=== PATIENT | female | born 1980 | race Caucasian/White ===

== ENCOUNTER 2023-05-31 12:46 | Outpatient (CLI) | payer BC, SELFPAY ==
--- NOTE | 2023-05-31 13:00 | US_ITS ---
Final Report Patient: MARIANNE LARA Facility:?[facility] Patient ID:?[id number] Site Patient ID:?[id number]. Site :?1980 Study:?US OB Pelvis -05/31/2023 1:53:21 PM Ordering Physician:?Erika Madera Final Report: INDICATION: First trimester scan, establish dates. COMPARISON: None. TECHNIQUE: Real-time miller-scale imaging of the pelvis was performed. FINDINGS: Sonographic imaging demonstrates a single living intrauterine gestation. The embryo demonstrates a regular cardiac rate measuring 173 beats per minute. The embryo`s crown-rump length measurement of 2.6 cm corresponds to a gestational age of 9 weeks 3 days with a sonographic due date of 12/31/2023. There is a normal-appearing yolk sac. There are no gross abnormalities noted within the embryo at this early state of development. The gestational sac has a normal appearance. There is a 3.3 x 5.1 x 2.4 cm perigestational hemorrhage. The amount of fluid within the sac appears appropriate for gestational age. The cervix is closed. The myometrium appears normal. Corpus luteal cyst left ovary. Right ovary not visualized. There are no suspicious fluid collections noted in the cul-de-sac. IMPRESSION: Single living intrauterine with sonographic gestational age 9 weeks 3 days and a sonographic due date 12/31/2023. Subchorionic hemorrhage measuring 3.3 x 5.1 x 2.4 cm. Dictated by Bishop Jacobson MD @ 05/31/2023 2:27:52 PM (Electronic Signatu
== END 2023-05-31 12:47 | disposition home or self-care (01) ==
LOC: US 12:47
PROVIDERS: Visit Provider Registered Nurse
DX: Z34.91 Encounter for supervision of normal pregnancy, unspecified, first trimester (principal); O20.9 Hemorrhage in early pregnancy, unspecified; Z3A.09 9 weeks gestation of pregnancy
CPT/HCPCS: 76817; 82565; 84450; 84460; 84520; 84550; 86703; 86706; 86803; 86850; 86900; 86901; 87086; 87340

== ENCOUNTER 2023-05-31 14:26 | Outpatient (CLI) | payer BC, SELFPAY | END 2023-05-31 14:27 | disposition home or self-care (01) | PROVIDERS: Visit Provider Registered Nurse | DX: Z34.91 Encounter for supervision of normal pregnancy, unspecified, first trimester (principal) | CPT/HCPCS: 82565; 84450; 84460; 84520; 84550; 86592; 86703; 86704; 86706; 86762; 86787; 86803; 86850; 86900; 86901; 87086; 87340 ==

== ENCOUNTER 2023-06-17 13:52 | Outpatient (CLI) | payer BC, SELFPAY ==
--- NOTE | 2023-06-17 14:00 | US_ITS ---
Final Report Patient: MARIANNE LARA Facility:?[facility] Patient ID:?[id number] Site Patient ID:?[id number]. Site :?1980 Study:?US OB Pelvis TRANSVAGINAL-06/17/2023 2:46:00 PM Ordering Physician:TAMICA BARNETT Final Report: INDICATION: Hemorrhage in early TECHNIQUE: Ultrasound OB pelvis transvaginal. Real-time miller-scale imaging of the pelvis was performed. COMPARISON: Obstetric ultrasound 05/31/2023 FINDINGS: Clinical Age: 11 weeks 6 days (RAMYA 12/31/2023) Sonographic imaging demonstrates a single living intrauterine gestation. The embryo demonstrates a regular cardiac rate measuring 173 beats per minute. The embryo`s crown rump length measurement of 5.0 cm corresponds to a gestational age of 11 weeks 5 days. Perigestational hemorrhage has increased in size now measuring 9.3 x 7.0 x 7.2 centimeters. IMPRESSION: 1. Single live intrauterine gestation with a clinical age of 11 weeks 6 days. 2. Perigestational hemorrhage redemonstrated which has significantly increased in size now measuring 9.3 x 7.0 x 7.2 centimeters. Considering the increasing hemorrhage, follow up ultrasound suggested in 1 week to reassess viability. Dictated by Davian Monteiro MD @ 06/17/2023 3:16:46 PM ----- ADDENDUM ----- Report confirmed with Dr. Barnett at 15:23 on 06/17/2023. Dictated by Davian Monteiro MD @ Jun 17 2023 3:33PM (Electronic Signature)
== END 2023-06-17 13:53 | disposition home or self-care (01) ==
LOC: US 13:52
PROVIDERS: Visit Provider Obstetrics & Gynecology
DX: O20.9 Hemorrhage in early pregnancy, unspecified (principal); Z3A.11 11 weeks gestation of pregnancy
CPT/HCPCS: 76817

== ENCOUNTER 2023-07-01 10:49 | Outpatient (CLI) | payer BC, SELFPAY ==
--- NOTE | 2023-07-01 11:00 | US_ITS ---
Patient: MARIANNE LARA Facility:?[facility] Patient ID:?[id number] Site Patient ID:?[id number] Site :?1980 Study:?US-OB Pelvis OB F/U [facility]-07/01/2023 11:30:53 AM Ordering Physician:?CLARK NAVA CNM Final Report: INDICATION: Follow-up subchorionic hemorrhage COMPARISON: 06/17/2023 TECHNIQUE: Real-time miller-scale imaging of the pelvis was performed. FINDINGS: Sonographic imaging demonstrates a single living intrauterine gestation. The embryo demonstrates a regular cardiac rate measuring 147 beats per minute. The embryo`s crown-rump length measurement of 7.9 cm corresponds to a gestational age of 13 weeks 6 days with a sonographic due date of 12/31/2023. Subchorionic hemorrhage is present in the fundal region measuring 4.3 x 2.0 x 5.6 cm, previously measuring 9.3 x 7.0 x 7.2 cm. IMPRESSION: Decreased size of fundal subchorionic hemorrhage measuring 4.3 x 2.0 x 5.6 cm. Dictated by Bishop Jacobson MD @ 07/01/2023 11:35:12 AM Signed by:?Bishop Jacobson MD @07/01/2023 11:35:12 AM (Electronic Signature)
== END 2023-07-01 10:50 | disposition home or self-care (01) ==
LOC: US 10:49
PROVIDERS: Visit Provider Advanced Practice Midwife
DX: O20.9 Hemorrhage in early pregnancy, unspecified (principal); Z3A.13 13 weeks gestation of pregnancy
CPT/HCPCS: 76816

== ENCOUNTER 2023-08-22 16:14 | Outpatient (CLI) | payer BC, SELFPAY | END 2023-08-22 16:15 | disposition home or self-care (01) | LOC: FRMREF 16:15 | PROVIDERS: Visit Provider Registered Nurse | DX: O09.522 Supervision of elderly multigravida, second trimester (principal); Z3A.21 21 weeks gestation of pregnancy | CPT/HCPCS: 84443 ==

== ENCOUNTER 2023-09-28 03:11 | Outpatient (CLI) | payer BC, SELFPAY ==
[2023-09-28] VITALS (11 sets, daily range): BP systolic 122–126; BP diastolic 59–82; PULSE 90–111; RESP 16; TEMP 36.6–36.8; O2SAT 96–99
[2023-09-28 04:22] LABS: Amnisure Rom* POSITIVE
[2023-09-28] MEDS: AMPICILLIN 2 GM in 0.9 % SODIUM CHLORIDE Mini-bag 100 ML IVPB (05:16)
[2023-09-28] MEDS: BETAMETHASONE SOD PHOS/ACETATE 6 MG/ML ML 12 MG IM (05:21)
[2023-09-28] MEDS: LACTATED RINGERS 1000 ML 1,000 ML 75 ML IV (05:23)
--- NOTE | 2023-09-28 05:35 | P.OBHP_ITS ---
OB - H&P; HPI Antepartum History of Present Illness Time Seen by Provider: 05:36 Date Seen: 09/28/23 Chief complaint: Maternity Narrative: Mariana Tello is a 42 year old 6 para 4014 at 26w4d gestation with an RAMYA of 12/31/2023 who presented to the Center early this morning with 3 episodes of fluid leaking from the vaginal canal enough that it saturated her underwear and got on to her clothing. On arrival to the center her AmniSure test was positive. She received 1 dose of betamethasone. Magnesium for neuro protection was started with a 4 g IV load and 2 grams/hour she was also given ampicillin 2 g IV and 1000 mg azithromycin IV to increase latency in a patient with PPROM. Planning on transferring the patient to [facility] for care and NICU. She is expecting a girl. 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 * Pelvic rest and avoidance of straining/strenuous activity * Recommend serial surveillance * Repeat US in 4 weeks w/ MFM to reevaluate growth, anatomy, and placenta/uteroplacental interface on 09/20/23. * Delivery at [facility] with Medical Physics Teacher Onc present at 34-35 weeks if accreta still suspected, or delivery at 36-37 weeks if previa without accreta. # History of delivery x4 * from 06/23/19: Dense adhesions between fascia, rectus muscles, omentum, anterior peritoneum, lower uterine segment, bladder. * Planning repeat with bilateral salpingectomies # BMI 49.1. * Hemoglobin A1c: 5.3% * Recommend daily baby aspirin starting at 12 weeks due to BMI and advanced maternal age to reduce risk of preeclampsia * Nutrition consult placed * Anesthesia consult. Would like to discuss medication options, as she did not like certain medications that she has received in the past during delivery. [] * Level 2 ultrasound: see below * Early GDM testing 08/21/2022: 114 * Weekly BPP and/or NST starting at 32 weeks * Growth ultrasound between 32 and 36 weeks # Advanced maternal age * Genetic screening discussed 06/30. Ordered. Negative for trisomy 21, 13, and 18. * Level 2 ultrasound: No anomalies; growth normal; CECIL normal; small YARELIS; placenta previa and suspected focal placenta accreta spectrum * Growth ultrasound between 32-36 weeks * Weekly NST starting at 36 weeks * Delivery 39-40 weeks # History of macrosomia. Previous deliveries were 8 lb 14 oz, 9 lb, 8 lb 13 oz, 8 lb 1 oz * Growth ultrasound # History of cholestasis in 2 of her previous pregnancies # Multiparity # Subchorionic hemorrhage measuring 3.3 x 5.1 x 2.4 cm. * increased in size 9.3x7x7.2cm at 11.6 wks, with some bleeding * f/u US 13.6 wks: now 4.3 X 2 X 5.6 cm; no further f/u until 20 weeks * YARELIS present at 20 week anatomy scan 50.3 x 7.9 x 37.4mm # Tachycardia at 21 weeks. EKG normal.Hemoglobin normal at 12.1. TSH normal at 2.29. *Patient asks for different surgical pad underneath her during the time of the delivery. States that she has had hives from the surgical pad in the past. Flu: Recommended, declines Covid: Recommended, declines Labs Blood type: O (+) positive Rubella: immune RPR/VDLR: nonreactive GBS status: unknown HBsAG: negative Meds Home Medications and Allergies Home Medications ?Medication ?Instructions ?Recorded ?Confirmed ?Type ascorbic acid (vitamin C) 1,000 mg 500 mg PO QDAY 05/31/23 09/28/23 History tablet cholecalciferol (vitamin D3) 50 50 mcg PO QDAY 05/31/23 09/28/23 History mcg (2,000 unit) capsule docosahexaenoic acid 200 mg 200 mg PO DAILY 05/31/23 09/28/23 History capsule ( DHA) vitamin B complex 1 cap PO QDAY 05/31/23 09/28/23 History calcium carbonate (Tums) 200 mg PO BID 09/16/23 09/28/23 History Allergies Allergy/AdvReac Type Severity Reaction Status Date / Time house dust Allergy Unknown Verified 09/16/23 12:53 adhesive AdvReac Unknown Verified 09/16/23 12:53 OB - H&P: Exam Physical Exam: Vital signs: Temp Pulse Resp BP Pulse Ox 98.3 F 90 16 126/69 98 09/28/23 04:28 09/28/23 04:09 09/28/23 04:28 09/28/23 04:09 09/28/23 03:49 Narrative: GENERAL APPEARANCE: Pleasant, , well-groomed woman in no acute distress. VITAL SIGNS: as noted in nursing notes HEAD: Normocephalic, atraumatic. THYROID: no masses, nodularity, tenderness or enlargement. LUNGS: Clear to auscultation bilaterally without wheezes, rales or rhonchi. HEART: Regular rate and rhythm with normal S1 and S2. No gallop, rub or murmur. ABDOMEN: Gravid. Soft, nontender, nondistended, with normal bowels sounds throughout. EFM: 140s with 10 x 10 accelerations, no decelerations. Reassuring for gestational age. TOCO: No contractions EXTREMITIES: No cyanosis, clubbing, or varicosities. Edema: 1+ at bilateral lower ankles. NEUROLOGIC: Normal gait and balance. Normal deep tendon reflexes at bilateral patella 2+/2, equal without clonus. PSYCHIATRIC: alert and oriented x3. Normal speech pattern, eye contact and affect. SKIN: Warm, dry, and well perfused. Good turgor. No lesions, nodules or rashes. OB - A/P Antepartum Assessment and Plan (1) premature rupture of membranes (PPROM) with unknown onset of labor: Status: Acute Plan 1. Transfer of care to [facility]: Dr. Justen White 2. Received BMTZ #1 3. Magnesium 4gm load and 2gm/hour for neuroprotection. 4. Ampicillin 2gm IV now. 5. Azithromycin 1000mg IV now.
[2023-09-28] MEDS: AZITHROMYCIN 250 MG TABLET 1000 MG PO (05:43)
[2023-09-28] MEDS: MAGNESIUM Infusion 40 GM/1,000 ML IV.SOLN IVPB (05:55)
--- NOTE | 2023-09-28 08:24 | PC.OBNST ---
NST Note NST Note Start: 09/28/23 03:35 Freq: ONCE Status: Active Protocol: Document 09/28/23 08:22 YONY (Rec: 09/28/23 08:23 YONY [id number]) NST Note 6 Para (# of births) 4 EDC 12/31/23 Gestational Age In Weeks & Days 26 Weeks & 4 Days Patient Presented with Complaint(s) of Leaking fluid Appropriate for Gestational Age Yes FRANNIE Carson, RN Date 09/28/23 Appropriate for Gestational Age Yes FRANNIE Trimble RNC Date 09/28/23 OB NST charge Yes Complete NST Note via Write Note Yes The provider's electronic signature indicates the NST is reactive/appropriate for gestational age. *Note to provider: If an addendum is required, open the patient's chart and click on the note under the Nurse/Allied Health tab.
--- NOTE | 2023-10-03 16:18 | PC.OBNST ---
NST Note NST Note Start: 09/28/23 03:35 Freq: ONCE Status: Discharge Protocol: Document 09/28/23 08:22 YONY (Rec: 09/28/23 08:23 YONY [id number]) NST Note 6 Para (# of births) 4 EDC 12/31/23 Gestational Age In Weeks & Days 26 Weeks & 4 Days Patient Presented with Complaint(s) of Leaking fluid Appropriate for Gestational Age Yes FRANNIE Carson, RN Date 09/28/23 Appropriate for Gestational Age Yes FRANNIE Trimble RNC Date 09/28/23 OB NST charge Yes Complete NST Note via Write Note Yes The provider's electronic signature indicates the NST is reactive/appropriate for gestational age. *Note to provider: If an addendum is required, open the patient's chart and click on the note under the Nurse/Allied Health tab.
--- NOTE | 2023-11-01 07:46 | PC.OBNST ---
NST Note NST Note Start: 09/28/23 03:35 Freq: ONCE Status: Discharge Protocol: Document 09/28/23 08:22 YONY (Rec: 11/01/23 07:46 SULEMA [id number]) NST Note 6 Para (# of births) 4 EDC 12/31/23 Gestational Age In Weeks & Days 26 Weeks & 4 Days Patient Presented with Complaint(s) of Leaking fluid Appropriate for Gestational Age Yes FRANNIE Carson RN Date 09/28/23 Appropriate for Gestational Age Yes FRANNIE Trimble RN Date 09/28/23 OB NST charge Yes Complete NST Note via Write Note Yes The provider's electronic signature indicates the NST is reactive/appropriate for gestational age. *Note to provider: If an addendum is required, open the patient's chart and click on the note under the Nurse/Allied Health tab.
== END 2023-09-28 08:15 | disposition other institution (70) ==
LOC: OB OUT 03:12 → OB 03:12
PROVIDERS: Visit Provider Obstetrics & Gynecology
DX: O42.912 Preterm premature rupture of membranes, unspecified as to length of time between rupture and onset of labor, second trimester (principal); Z3A.26 26 weeks gestation of pregnancy
CPT/HCPCS: 59025; 84112; G0463; A9270; J0290; J0702; J3475; J7120

== ENCOUNTER 2023-09-28 08:02 | Outpatient (CLI) | payer BC, SELFPAY ==
--- NOTE | 2023-09-30 05:13 | PC.OBNST ---
Mariana Tello Female : 1980 MedRec# [id number] 09/28/23 08:24 - NST Documentation by Heather Carson RN Acct Num: [id number] : 1980 Patient Age: 42 NST Note NST Note Start: 09/28/23 03:35 Freq: ONCE Status: Active Protocol: Document 09/28/23 08:22 YONY (Rec: 09/28/23 08:23 YONY [id number]) NST Note 6 Para (# of births) 4 EDC 12/31/23 Gestational Age In Weeks & Days 26 Weeks & 4 Days Patient Presented with Complaint(s) of Leaking fluid Appropriate for Gestational Age Yes FRANNIE Carson RN Date 09/28/23 Appropriate for Gestational Age Yes FRANNIE Trimble RNC Date 09/28/23 OB NST charge Yes Complete NST Note via Write Note Yes The provider's electronic signature indicates the NST is reactive/appropriate for gestational age. *Note to provider: If an addendum is required, open the patient's chart and click on the note under the Nurse/Allied Health tab. Initialized on 09/28/23 08:24 - END OF NOTE
== END 2023-09-28 08:03 | disposition home or self-care (01) ==
LOC: AMB 09-29 17:15
PROVIDERS: Visit Provider Family Medicine
DX: O42.912 Preterm premature rupture of membranes, unspecified as to length of time between rupture and onset of labor, second trimester (principal); Z3A.26 26 weeks gestation of pregnancy
CPT/HCPCS: A0425; A0434

== ENCOUNTER 2024-12-14 01:10 | Day surgery (SDC) | payer BC, SELFPAY ==
[2024-12-14] VITALS (23 sets, daily range): BP systolic 120–151; BP diastolic 69–100; PULSE 67–96; RESP 14–19; TEMP 35.9–37.2; O2SAT 93–100; BMI 50.3
--- OUTSIDE RECORDS SUMMARY | 2024-12-14 01:12 | XMS_ITS | Encounter Summary ---
Author Organization [facility] Address [address] [facility] [facility] [place] [address] Care Team Providers Care Therapist Speech Name Role Phone Henrietta, Kylie Tianna Unavailable Kylie Shrestha Unavailable Pooja Harris MD Primary Care Provider Bishop Powell MD Unavailable [phone] Encounter Details Date Type Department Care Team (Late st Contact Info) Description 10[place]22/2023 [facility] [place] [facility] [address] [facility] [address] [place] [address] Verito Deleon, RN Social History Tobacco Use Types Packs/Day Years Used Date Smoking Tobacco: Never Smokeless Tobacco: Never Alcohol Use Standard Drinks/Week Comments No 0 (1 standard drink = 0.6 oz pur e alcohol) 2 per month [place] Depression Scale Answer Date Recorded Last EPDS Total Score Not on file 10/11/2023 The thought of harming myself has occurred to me . 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
--- OUTSIDE RECORDS SUMMARY | 2024-12-14 01:12 | XMS_ITS | Clinical Summary ---
Author Organization [employer] [facility] Address [address] [place] [address] Care Team Providers Care Financial Retirement Plan Specialist Name Role Phone Grayson Parisi MD Unavailable [facility] Primary Care Provider Unavailabl e Allergies Active Allergy Reactions Criticality Noted Date Comments Adhesive Rash,Itching High 06/23/2015 Dust Mites Hives 11/01/2017 Medications vitamin-folic acid 1 mg ( VITAMIN) tablet/capsule Take 1 tablet by mouth once daily. 0 4 Active ascorbic acid, vitamin C, (VITAMIN C) 1,000 mg tablet 1 tablet daily Active cholecalciferol (VITAMIN D3) 5,000 unit capsule Take 1 capsule by mouth once daily. 40 units = 1 mcg (5000 units = 125 mcg) 0 0 Active CPAPIndications :BROWN (obstructive sleep apnea) CPAP machine for home use at pressure 9 cm/H2O, full face mask x1/3month with a full face cushion x1/mo length of need #99 1 Device 11 1 Active hydrocortisone (HYTONE) 2.5 % ointmentIndicat ions:Dermatitis Apply topically to affected area(s) two times daily. 20 g 3 Active Active Problems Problem Noted Date Diagnosed Date BROWN 03/18/2020 HST AHI-14.9 03/30/2020 Class 3 severe obesity due to excess calories in adult 03/30/2020 S/P section 06/22/2015 Knee pain 01/10/2014 Overview (01/10/2014): 11/2013: [facility] Dr. Samuel: PT. Leg edema 12/21/2013 Overview (12/30/2013): Chronic; worse recently with weight gain, summer heat. Cr, TSH, urinalysis unrevealing 12/2013. 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 06/2012: doing well, MRI without recurrence. Re-scan planned through Neurosurgery 02/2013; delayed due to ; normal 11/2013. Next scan 11/2014. Migraine 12/31/2011 Overview (03/03/2012): Neurology ([facility], Dr. Brumfield 12/2011): OTCs, MRI with brain tumor (unlikely related). WBC decreased 10/14/2011 Overview (12/30/2013): Most recent 12/2013: normal. 02/2012: 4.1. Smear without concerning findings. Stable 10/2012. Vitamin D deficiency 10/14/2011 Overview (10/24/2012): 09/2011: 12.3. Planning 50,000 units Qweek x8 weeks, followed by 1,000 units daily. 12/2011: 19.6. Planning repeat above treatment if okay with Neurology. 02/2012: 24.6. 1,000 units daily. 10/2012: not taking Vitamin D. Level 14. 50,000 units weekly for 12 weeks, then 1,000 units daily. Health Maintenance 05/10/2011 Overview (12/30/2014): Establish Care: 04/2011. 11/2014: 10 weeks ; [facility] ED for CP, SOB, borderline elevated d-dimer; ultrasound lower extremities negative. Physical Exam: 12/2014, 12/2013, 10/2012, 09/2011. FLP, TSH, Hgb normal (12/2013). FBS normal through Gynecology 2013. Pap/Breast: per [facility] Usher (Dr. Kimball; colposcopy pending 11/2013). Follow-up pap smear 11/2011, 05/2012 normal, pending 11/2012 per patient. Mammogram: Future. Pre-menopausal: irregular periods, seeing Booth Usher 04/2011. Calcium: 12/2013: 2 servings/day; intermittent multivitamin. DEXA: Future. Exercise: 12/2013: Walking; PT for her knee. Colonoscopy: Future (MGF with colon cancer in his 60s). TTE normal 10/2011 (subtle extra heart sound heard around S1 on physical exam). 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 Derm (Dr. Mariia Swartz): atypical nevus removed chest wall. Immunizations Immunization Administration Dates Next Due AMB Influenza, IIV4 PF (=>6 mos Flulaval,Fluzone Fluarix)(Flu Clinic Only) 01/29/2014 Tdap 10/11/2011 Family History Medical History Relation Name Comments Obesity Brother 1 Other Brother 2 Leukemia (T-Silvia l) diagnose at 7 Other cancer Brother 2 Meningioma Diabetes type II Father Hypertension Father Other Father Gout/Hereditary peripheral neuropathy Cancer-colon Maternal Grandfather Lymphoma Maternal Grandfather Cancer Maternal Grandmother Skin ca ncer (not melanoma) Diabetes Maternal Uncle Other Paternal Grandfather amblyop ia Alzheimer's disease Paternal Grandmother Relation Name Status Comments Brother 1 Alive Brother 2 Alive Father Alive Maternal Grandfather Maternal Grandmother Alive Maternal Uncle Mother Alive Paternal Grandfather Alive Paternal Grandmother Alive Social History Tobacco Use Types Packs/Day Years Used Date Smoking Tobacco: Never Smokeless Tobacco: Never Tobacco Cessation:Counseling Given: Yes Alcohol Use Standard Drinks/Week Comments No 0 (1 standard drink = 0.6 oz pur e alcohol) Occasional, not when PHQ-2 Answer Date Recorded PHQ-2 TOTAL SCORE 0 01/15/2020 Social Connections Answer Date Recorded Frequency of Communication with Friends and Fami ly Not on file 04/30/2023 Financial Resource Strain Answer Date R ecorded Difficulty of Paying Living Expenses 3 04/20/2022 Difficulty of Paying Living Expenses Not on file 04/20/2022 Food Insecurity Answer Date Recorded Worried About Running Out of Food in the Last Ye ar 1 04/20/2022 Transportation Needs Answer Date Record ed Lack of Transportation (Medical) 1 04/20/2022 Housing Stability Answer Date Recorded Unable to Pay for Housing in the Last Year 1 04/20/2022 Comments No Sex and Gender Information Value Date Recorded Sex Assigned at Not on file Legal Sex Female 8:23 AM SUPERVISOR BOAT OUTFITTING Gender Identity Not on file Sexual Orientation Not on file Obstetrics History Para Term AB IAB SAB Ectopic Multiple Livin g Live Births 4 2 2 0 1 0 0 0 0 3 2 Date Outcome GA Total Labor Labor/2nd/3rd Weight Sex Type Anes PTL Olga A1 A5 Name Clin AB 2013 Term 41w 0d 4.03 kg (8 lb 14 oz) M C-Sec tion Epidur al N Livin g [place] [facility] Complications: Intolera nce 2015 Term 41w 0d 4.09 kg (9 lb 0.3 oz) M [facility] t[facility] Spinal Livin g 9 9 [facility] Delivery Location:[facility] 2017 4 kg (8 lb 13 oz) F C-Sec tion Complications:None Comments:had cholestas is of Last Filed Vital Signs Vital Sign Reading Time Taken Comments Blood Pressure 118/68 04/20/2022 2:55 PM SUPERVISOR BOAT OUTFITTING Pulse 68 04/20/2022 2:55 PM SUPERVISOR BOAT OUTFITTING Temperature 36.4 C (97.5 F) 06/06/2020 4:34 PM SUPERVISOR BOAT OUTFITTING Respiratory Rate 16 06/06/2020 4:34 PM SUPERVISOR BOAT OUTFITTING Oxygen Saturation 98% 06/06/2020 4:34 PM SUPERVISOR BOAT OUTFITTING Inhaled Oxygen Concentration - - Weight 161.7 kg (356 lb 8 oz) 04/20/2022 2:55 PM SUPERVISOR BOAT OUTFITTING Height 185.4 cm (6' 1) 06/06/2020 4:35 PM SUPERVISOR BOAT OUTFITTING Body Mass Index 47.03 06/06/2020 4:35 PM SUPERVISOR BOAT OUTFITTING Plan of Treatment Health Maintenance Due Date Last Done Comments HIV for age 15-65 12/14/1995 Hepatitis C screening for age 18-79 1998 Hepatitis B series for 19+ (1 of 3 - 19+ 3-dose series) 12/14/1999 BMI (ht and wt on same day) for age 18+ 01/14/2021 01/15/2020, 11/01/2017, 05/16/2015 Depression screening for age 12+ 01/14/2021 01/15/2020, 01/15/2020, 11/01/2017 Tetanus booster 10/10/2021 10/11/2011 COVID-19 vaccine series ( season) 2023 Influenza Vaccine (#1) 2024 01/29/2014 Pap test for age 21-65 05/31/2026 , 05/31/2023, 02/15/2017, Additional history exists Pneumococcal series for age 6-49 Aged Out No longer eligible based on patient's age to complete this topic Procedures Procedure Name Priority Date/Time Associated Diagnosis Comments RURAL SOCIOLOGIST THIN PREP PAP SCREEN IMAGED Routine 05/31/2023 3:10 PM SUPERVISOR BOAT OUTFITTING from Last 3 Months or Most Recently Relevant to Health Maintenance Results * RURAL SOCIOLOGIST THIN PREP PAP SCREEN IMAGED (05/31/2023 3:10 PM SUPERVISOR BOAT OUTFITTING) Case Report Gynecologic Cytology Report Case: [id number] Authorizing Provider: Claire Madera NP Collected: 05/31/2023 1510 Ordering Location: [facility] Received: 06/03/2023 1729 First Screen: Zandra Zamudio Specimen: RURAL SOCIOLOGIST ThinPrep Vial Screening, Cervical 06/05/2023 6:22 PM SUPERVISOR BOAT OUTFITTING [facility] INTERPRETATION/ RESULT NEGATIVE FOR INTRAEPITHELIAL LESION OR MALIGNANCY (NIL) (none) 06/05/2023 6:22 PM SUPERVISOR BOAT OUTFITTING [facility] at 1822 SUPERVISOR BOAT OUTFITTING SPECIMEN ADEQUACY Satisfactory for evaluation No endocervical component seen in a patient 06/05/2023 6:22 PM SUPERVISOR BOAT OUTFITTING [facility] HPV REQUEST HPV and PAP 06/05/2023 6:22 PM SUPERVISOR BOAT OUTFITTING [facility] Date of LMP 03/18/2023 06/05/2023 6:22 PM SUPERVISOR BOAT OUTFITTING [facility] Last Pap Date 02/15/2017 06/05/2023 6:22 PM SUPERVISOR BOAT OUTFITTING [facility] Last Pap Result NIL 6:22 PM SUPERVISOR BOAT OUTFITTING [facility] Abnormal Pap or Bonner Bx in last 5 years No 06/05/2023 6:22 PM SUPERVISOR BOAT OUTFITTING [facility] Menstrual Status 06/05/2023 6:22 PM SUPERVISOR BOAT OUTFITTING [facility] Bonner Bx Done Today No 06/05/2023 6:22 PM SUPERVISOR BOAT OUTFITTING [facility] Additional Information 06/05/2023 6:22 PM SUPERVISOR BOAT OUTFITTING [facility] Comment: Interpreted at [facility] - [address] [facility] [address], [place] [address] Automated Review Successful 06/05/2023 6:22 PM SUPERVISOR BOAT OUTFITTING [facility] Comment:Specimen processed s uccessfully by automated casting room helper device, ThinPrep Imaging System, [employer] ANCILLARY TESTING RURAL SOCIOLOGIST HPV Ordered, Please see separate report 06/05/2023 6:22 PM SUPERVISOR BOAT OUTFITTING [facility] Note The pap test is a screening technique, not a diagnostic procedure. It is used primarily to screen for squamous cancers and precursor lesions. Published studies have shown that it is subject to both false negative and false positive results. The pap test should not be used as the sole means to diagnose or exclude pre-malignant and malignant lesions. 06/05/2023 6:22 PM SUPERVISOR BOAT OUTFITTING [facility] Other (Cervical) 05/31/2023 3:10 PM SUPERVISOR BOAT OUTFITTING 06/03/2023 5:29 PM SUPERVISOR BOAT OUTFITTING us Claire Madera NP PATHOLOGY/CYTOLOGY Final Result [facility] [address] [place] [address], [place] from Last 3 Months or Most Recently Relevant to Health Maintenance Insurance [facility] Advance Directives * Full Code (Latest Code Status on File) Date Activated Date Inactivated Comments 06/21/2015 3:13 PM 06/24/2015 3:46 PM * Full Code Date Activated Date Inactivated Comments 06/21/2015 10:00 AM 06/21/2015 3:13 PM Care Teams Financial Retirement Plan Specialist Relationship Specialty Start Date End Date Josefina [facility] PCP - General 04/20/22 Grayson Parisi MD [address] [address] Obstetrics and Gynecology 12/30/14
--- OUTSIDE RECORDS SUMMARY | 2024-12-14 01:12 | XMS_ITS | Encounter Summary ---
Author Organization [facility] Address [address] [place] [address] Care Team Providers Care Team Coordinator Name Role Phone Kylie Shrestha Unavailable Kylie Shrestha Primary Care Provider [phone] Kylie Shrestha Unavailable Pooja Harris MD Primary Care Provider Yasmin Aviles APRN PATIENT CASE MANAGER Unavailable Yasmin Aviles APRN PATIENT CASE MANAGER Unavailable Lon Rose MD Unavailable [phone] Bishop Powell MD Unavailable [phone] Reason for Referral * - Closed Specialty Diagnoses / Procedures Referred By Siva t Referred To Contact Diagnoses related condition, antepartum Kimberlyn Hernandez, RELIEF WORKER [facility] [address] [place] [address] Phone: tel: fax: Referral ID Status Reason Start Date Expiration Date Visits Re quested Visits Authorized [id number] Closed 02/18/2017 02/18/2018 1 1 Comments AMA, obesity T CUTTER Encounter Details Date Type Department Care Team (Late st Contact Info) Description 02/18/2017 Orders Only [facility] [place] [address] [facility] [address] [place] [phone] Kimberlyn Hernandez NP [address] [address] related condition, antepartum (Primary Dx) Social History Tobacco Use Types Packs/Day Years Used Date Smoking Tobacco: Never Alcohol Use Standard Drinks/Week Comments No 0 (1 standard drink = 0.6 oz pur e alcohol) 2 per month Comments No Sex and Gender Information Value Date Recorded Sex Assigned at Not on file Legal Sex Female 5:04 AM INSET CUTTER Gender Identity Not on file Sexual Orientation Not on file documented as of this encounter Plan of Treatment Scheduled Referrals Name Type Priority Associated Diagnoses Orde r Schedule [facility] Genetic Counseling Referral Routine Related Condition, Antepartum 1 Occurrences starting 02/18/2017 until 02/19/2018 documented as of this encounter Results * [facility] US Comprehensive Single (04/12/2017 10:53 AM INSET CUTTER) Anatomical Region Laterality Modality Ultrasound 04/12/2017 10:1 2 AM INSET CUTTER Impressions 04/12/2017 11:42 AM INSET CUTTER IMPRESSION ----- 1) Intrauterine at 19+6 weeks gestational age. 2) None of the anomalies commonly detected by ultrasound were evident in the limited anatomic survey described above due to maternal habitus. Increased nuchal fold. 3) Growth parameters and estimated weight were consistent with an appropriate for gestation age pattern of growth. 4) The amniotic fluid volume appeared normal. 5) Partial circumvallate placenta. Narrative 04/12/2017 11:42 AM INSET CUTTER Comprehensive ----- Pat. Name: MARIANNE TELLO Study Date: 04/12/2017 10:12am Pat. NO: [id number] Referring MD: KIMBERLYN HERNANDEZ Site: [facility] [employer] Warehouse Helper: Kimberlyn Wilder RDMS : 1980 Age: 36 ----- INDICATION ----- Advanced Maternal Age--Multigravida. METHOD ----- Transabdominal ultrasound examination. ----- Haynes . Number of fetuses: 1. DATING ----- Date Details Gest. age RAMYA LMP 11/24/2016 19 w + 6 d 08/31/2017 U/S 04/12/2017 based upon AC, BPD, Femur, HC 20 w + 3 d 08/27/2017 Assigned dating Dating performed on 04/12/2017, based on the LMP 19 w + 6 d 08/31/2017 GENERAL EVALUATION ----- Cardiac activity: present. FHR 155 bpm. movements: visualized. Presentation: Variable. Placenta: Placental site: no previa, posterior. Partial circumvallate placenta. Umbilical cord: 3 vessel cord. Amniotic fluid: Amount of AF: normal amount. MVP 4.4 cm. CECIL 17.1 cm. Q1 4.4 cm, Q2 4.4 cm, Q3 4.3 cm, Q4 4.0 cm. BIOMETRY ----- Main Biometry: BPD 47.4 mm 20w 2d Hadlock OFD 64.8 mm 20w 4d Nicolaides HC 180.4 mm 20w 3d Hadlock AC 151.3 mm 20w 2d Hadlock Femur 34.1 mm 20w 5d Hadlock Cerebellum tr 21.4 mm 20w 3d Nicolaides CM 4.9 mm Nuchal fold 6.12 mm Humerus 35.9 mm 22w 4d Nikhil Weight Calculation: EFW 359 g EFW (lb,oz) 0 lb 13 oz Calculated by Felylock ([id number]) Head / Face / Neck Biometry: Tuber Machine Cutter 6.5 mm Nasal bone 7.2 mm Amniotic Fluid / FHR: AF MVP 4.4 cm CECIL 17.1 cm FHR 155 bpm ANATOMY ----- The following structures appear normal: Head / Neck Cranium. Head size. Head shape. Lateral ventricles. Choroid plexus. Midline falx. Cavum septi pellucidi. Cerebellum. Cisterna magna. Thalami. Neck. Nuchal fold. Face Lips. Profile. Nose. Orbits. Heart / Thorax 4-chamber view. RVOT. LVOT. Aortic arch. Bicaval view. Ductal arch. 5-nhptdu-hxjqkji view. Cardiac position. Cardiac size. Cardiac rhythm. Diaphragm. Abdomen Abdominal wall. Cord insertion. Stomach. Kidneys. Bladder. Liver. Bowel. Spine / Skelet. Cervical spine. Thoracic spine. Lumbar spine. Sacral spine. Extremities Arms. Legs. MATERNAL STRUCTURES ----- Cervix Visualized, Appears Closed. Cervical length 49.5 mm. Right Ovary Not visualized. Left Ovary Not visualized. RECOMMENDATION ----- We discussed the findings on today's ultrasound with the patient. The nuchal fold measurement on today's ultrasound was >6mm which gives an associated risk for Down syndrome of 18.6. This finding increases your patient's risk for Down syndrome in this to 1/15. We discussed the availability of NIPT screening versus amniocentesis for the precise diagnosis of chromosomal abnormalities including the associated procedure-related risk of loss of 1/500, which she declined. A repeat ultrasound has been scheduled in 3 weeks to reevaluate anatomy. Return to primary provider for continued care., Thank-you for the opportunity to participate in the care of this patient. If you have questions regarding today's evaluation or if we can be of further service, please contact the [facility]. anomalies may be present but not detected . Procedure Note Morena Cazares, DO - 12/29/2017 Comprehensive ----- Pat. Name:Renuka TELLO Date:04/12/2017 10:12am Pat. NO: [id number] MD:KIMBERLYN HERNANDEZ [facility]Kimber[facility] Wilder RDMS :1980Age:36 ----- INDICATION ----- Advanced Maternal Age--Multigravida. METHOD ----- Transabdominal ultrasound examination. ----- Haynes . Number of fetuses: 1. DATING ----- DateDetailsGest. age RAMYA LMP 11/24/201619 w + 6 d 08/31/2017 U/S 04/12/2017based upon AC, BPD, Femur, HC20 w + 3 d 08/27/2017 Assigned dating Dating performed on 04/12/2017, based onthe LMP 19 w +6 d 08/31/2017 GENERAL EVALUATION ----- Cardiac activity: present. FHR 155 bpm. movements: visualized. Presentation: Variable. Placenta: Placental site: no previa, posterior. Partial circumvallate placenta. Umbilical cord: 3 vessel cord. Amniotic fluid: Amount of AF: normal amount. MVP 4.4 cm. CECIL 17.1 cm. Q14.4 cm, Q2 4.4 cm, Q3 4.3 cm, Q4 4.0 cm. BIOMETRY ----- Main Biometry: BPD 47.4 mm20w 2d Hadlock OFD 64.8 mm20w 4d Nicolaides HC 180.4 mm20w 3d Hadlock AC 151.3 mm20w 2d Hadlock Femur 34.1 mm20w 5d Hadlock Cerebellum tr 21.4 mm20w 3d Nicolaides CM 4.9 mm Nuchal fold 6.12 mm Humerus 35.9 mm22w 4d Nikhil Weight Calculation: EFW 359 g EFW (lb,oz) 0 lb 13 oz Calculated by Fabian ([id number]) Head / Face / Neck Biometry: Tuber Machine Cutter 6.5 mm Nasal bone 7.2 mm Amniotic Fluid / FHR: AF MVP 4.4 cm CECIL 17.1 cm FHR 155 bpm ANATOMY ----- The following structures appear normal: Head / Neck Cranium. Head size. Head shape.Lateral ventricles. Choroid plexus. Midline falx. Cavum septi pellucidi.Cerebellum. Cisterna magna. Thalami. Neck. Nuchal fold. Face Lips. Profile. Nose. Orbits. Heart / Thorax 4-chamber view. RVOT. LVOT. Aorticarch. Bicaval view. Ductal arch. 8-avycaf-dobidfd view. Cardiac position.Cardiac size. Cardiac rhythm. Diaphragm. Abdomen Abdominal wall. Cord insertion.Stomach. Kidneys. Bladder. Liver. Bowel. Spine / Skelet. Cervical spine. Thoracic spine. Lumbarspine. Sacral spine. Extremities Arms. Legs. MATERNAL STRUCTURES ----- Cervix Visualized, Appears Closed. Cervical length 49.5 mm. Right Ovary Not visualized. Left Ovary Not visualized. RECOMMENDATION ----- We discussed the findings on today's ultrasound with the patient. The nuchal fold measurement on today's ultrasound was >6mm which gives anassociated risk for Down syndrome of 18.6. This finding increases yourpatient's risk for Down syndrome in this to 04/29. We discussed the availability of NIPT screening versus amniocentesisfor the precise diagnosis of chromosomal abnormalities including the associated procedure-related risk of loss of1/500, which she declined. A repeat ultrasound has been scheduled in 3 weeks to reevaluate fetalanatomy. Return to primary provider for continued care., Thank-you for the opportunity to participate in the care of this patient.If you have questions regarding today's evaluation or if we can be offurther service, please contact the [facility]. anomalies may be present but not detected . IMPRESSION ----- 1) Intrauterine at 19+6 weeks gestational age. 2) None of the anomalies commonly detected by ultrasound were evident inthe limited anatomic survey described above due to maternal habitus.Increased nuchal fold. 3) Growth parameters and estimated weight were consistent with anappropriate for gestation age pattern of growth. 4) The amniotic fluid volume appeared normal. 5) Partial circumvallate placenta. us Kimberlyn Hernandez NP IMG [facility] US ORDERABLES Edited R esult - Final documented in this encounter Visit Diagnoses Diagnosis related condition, antepartum- Primary related condition, antepartum documented in this encounter Care Teams Team Coordinator Relationship Specialty Start Date End Date Kylie Shrestha PCP - General 02/28/12 03/27/17 Pooja Harris MD PCP - General child care giver 03/28/17 Yasmin Aviles APRN PATIENT CASE MANAGER [address] [place] [address] FR[place]DY BRAVO [address] PCP - Assigned PCP 05/28/16 06/17/18 Kylie Shrestha 01/16/12 Kylie Shrestha Internal Medicine 07/27/13 Yasmin Aviles APRN PATIENT CASE MANAGER [address] [place] [address] [place] [id number] Assigned PCP 05/28/16 07/05/18 Lon Rose MD [address] [place], [place] [id number] [place] [address] Assigned Neuroscience Provider 02/05/20 04/22/21 [place] [address] [place], [place] [address] Assigned Neuroscience Provider 01/06/24 documented as of this encounter
--- OUTSIDE RECORDS SUMMARY | 2024-12-14 01:12 | XMS_ITS | Encounter Summary ---
Author Organization [facility] Address [address] [place] [address]. [place] [address] Care Team Providers Care Biomass Power Plant Superintendent Name Role Phone Henrietta, Kylie Tianna Unavailable Kylie Shrestha Unavailable Pooja Harris MD Primary Care Provider Bishop Powell MD Unavailable [phone] Encounter Details Date Type Department Care Team (Late st Contact Info) Description 09/23/2023 [facility] [place] [facility] [place] [address] [place], [place] [phone] Kareen Rodriguez, FRANNIE Social History Tobacco Use Types Packs/Day Years Used Date Smoking Tobacco: Never Smokeless Tobacco: Never Alcohol Use Standard Drinks/Week Comments No 0 (1 standard drink = 0.6 oz pur e alcohol) 2 per month Adolescent Education Answer Date Record ed Getting School Help Needed Not on file 08/08 Comments Yes Sex and Gender Information Value Date Recorded Sex Assigned at Not on file Legal Sex Female 5:04 AM IT GENERALIST Gender Identity Not on file Sexual Orientation Not on file documented as of this encounter Plan of Treatment Not on file documented as of this encounter Visit Diagnoses Not on filedocumented in this encounter Care Teams Biomass Power Plant Superintendent Relationship Specialty Start Date End Date Pooja Harris MD PCP - General telephone installer 03/28/17 Kylie Shrestha 01/16/12 Kylie Shrestha Internal Medicine 07/27/13 [place] [address] [place] [address] Assigned Neuroscience Provider 01/06/24 documented as of this encounter
--- OUTSIDE RECORDS SUMMARY | 2024-12-14 01:12 | XMS_ITS | Clinical Summary ---
Author Organization [facility] Address [address] [place] [address] Care Team Providers Care Operations Recruiter Name Role Phone Henrietta, Kylie Tianna Unavailable Kylie Shrestha Unavailable Pooja Harris MD Primary Care Provider Bishop Powell MD Unavailable [phone] Allergies Active Allergy Reactions Criticality Noted Date Comments Contrast Dye Low 04/05/1998 Dust Mites Hives Medium 11/01/2017 Liquid Adhesive Itching,Rash High 06/23/2015 Medications Vit-Fe Fumarate-FA ( MULTIVITAMIN PLUS IRON) 27-0.8 MG TABS Take 1 tablet by mouth daily Active Fenugreek 610 MG CAPS 3 times daily 8 Active Midway-3 Fatty Acids (FISH OIL) 1000 MG CPDR daily 8 Active Bioflavonoid Products (VITAMIN C PLUS) 1000 MG TABS daily Active Vitamin D, Cholecalciferol, 1000 units CAPS daily 8 Active acetaminophen (TYLENOL) 325 MG tabletIndication s:S/P section Take 2 tablets (650 mg) by mouth every 6 hours as needed for mild pain Start after Delivery. 100 tablet 4 Active Additional Information Patient not taking.Reported on 11/14/2023 ibuprofen (ADVIL/MOTRIN) 600 MG tabletIndication s:S/P section Take 1 tablet (600 mg) by mouth every 6 hours as needed for moderate pain Start after delivery 60 tablet Active Additional Information Patient not taking.Reported on 11/14/2023 senna-docusate (SENOKOT-S/PERIC OLACE) 8.6-50 MG tabletIndication s:S/P section Take 1 tablet by mouth daily Start after delivery. 100 tablet 4 Active Additional Information Patient not taking.Reported on 11/14/2023 albuterol (PROAIR HFA/PROVENTIL HFA/VENTOLIN HFA) 108 (90 Base) MCG/ACT inhaler 2 puffs Active Active Problems Problem Noted Date Diagnosed Date Gestational hypertension 10/12/2023 History of section complicating pregnan cy 09/29/2023 27 weeks gestation of 09/29/2023 Personal history of benign brain tumor Placenta accreta in second trimester 09/29/2023 Placenta previa antepartum in second trimester 0 09/29/2023 Severe obesity due to excess calories affecting in second trimester 09/29/2023 Placental abruption in second trimester 09/29/19 24 premature rupture of membranes (PPROM) delivered, current hospitalization 09/28/2023 Large for dates affecting management of mother 0 10/13/2013 Post term , antepartum condition or com plication 10/13/2013 intolerance to labor, delivered, current hospitalization 10/13/2013 S/P section 10/13/2013 Large for dates complicating , antepart um 10/06/2013 Indication for care in labor or delivery 014 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 06/2012: doing well, MRI without recurrence. Re-scan planned through Neurosurgery 02/2013; delayed due to ; normal 11/2013. Next scan 11/2014. 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 Immunizations Immunization Administration Dates Next Due DT (PEDS <7y) 12/09/1985 HIB (PRP-T) 12/11/1984 Hepatitis B, Adult (Energix-B/Recombivax HB) 05/22/1993,12/27/1992,11/07/1992 Historical DTP/aP 10/24/1982, 2,05/12/1981,02/07 Influenza Vaccine >6 months,quad, PF 01/29/2014 MMR (MMRII) 11/07/1992,02/23/1982 Meningococcal (Menomune ) 03/10/1999 OPV, trivalent, live 12/09/1985,10/24/18 83,05/13/1981,02/07 TDAP (Adacel,Boostrix) 04/15/2011 Td (Adult), Adsorbed 11/11/1996 Family History Medical History Relation Comments Leukemia Brother Obesity Brother Hypertension Father Obesity Father Relation Status Comments Brother Father Social History Tobacco Use Types Packs/Day Years Used Date Smoking Tobacco: Never Smokeless Tobacco: Never Tobacco Cessation:Counseling Given: Not Answered Alcohol Use Standard Drinks/Week Comments No 0 (1 standard drink = 0.6 oz pur e alcohol) 2 per month PHQ-2 Answer Date Recorded PHQ-2 Score 0 11/14/2023 [place] Depression Scale Answer Date Recorded Last EPDS Total Score Not on file 11/13/2023 The thought of harming myself has occurred to me . 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 Gender Identity Not on file Sexual Orientation Not on file Last Filed Vital Signs Vital Sign Reading Time Taken Comments Blood Pressure 136/78 12/06/2023 10:42 AM CDT Pulse 72 12/06/2023 10:42 AM CDT Temperature 36.8 C (98.2 F) 12/06/2023 10:42 AM CDT Respiratory Rate 18 10/12/2023 10:5 4 AM CDT Oxygen Saturation 97% 12/06/2023 10: 42 AM CDT Inhaled Oxygen Concentration - - Weight 159.9 kg (352 lb 9.6 oz) 024 10:42 AM CDT Height 184.5 cm (6' 0.64) 12/06/2023 1 0:42 AM CDT Body Mass Index 46.98 12/06/2023 10:42 AM CDT Plan of Treatment Health Maintenance Due Date Last Done Comments ADVANCE CARE PLANNING 1980 ANNUAL REVIEW OF HM ORDERS 1980 MAMMO SCREENING 1980 LIPID 2020 YEARLY PREVENTIVE VISIT 01/14/2021 01/15/2020 DTAP/TDAP/TD VACCINE (7 - Td or Tdap) 04/15/2021 04/15/2011, 11/11/1996, 10/24/1982, Additional history exists COVID-19 VACCINE ( season) 2023 PHQ-2 (once per calendar year) 2024 11/14/2023 INFLUENZA VACCINE (#1) 2024 01/29/2014 PAP 05/31/2026 05/31/2023, 05/16, 11/13/2014 DIABETES SCREENING 10/08/2026 10/09/2023, 0 10/08/2023, 10/08/2023, Additional history exists ZOSTER VACCINE (1 of 2) 2030 HEPATITIS B VACCINE Completed 05/22/1993, 12/27/1992, 11/07/1992 MENINGITIS VACCINE Aged Out 03/10/1999 No longer eligible based on patient's age to complete this topic HEPATITIS C SCREENING Completed 10/09/2023 HIV SCREENING Completed 10/09/2023, 10/09/2023 HPV VACCINE (No Doses Required) Completed PNEUMOCOCCAL VACCINE: PEDIATRICS (0 to 5 YEARS) AND AT-RISK PATIENTS (6 to 49 YEARS) Aged Out No longer eligible based on patient's age to complete this topic Medical Devices Implanted Type Area Curing Finisher Device Identifier Shelf Expiration Date Model / Serial / Lot Graft Duraform [id number] Implanted:Qty: 1 on 02/28/2012 by Gabe Dudley MD at [facility] Right: Brain [employer]- 12/12/2012 [id number] / / [id number] Imp Scr Syn Matrix Low Pro 1.5x04mm Self Drill ..104.01 Implanted:Qty: 13 on 02/28/2012 by Gabe Dudley MD at [facility] Right: Cranial .503.104 .01 / / Imp Plate Syn Box Low Profile 04h Ti [id number] Implanted:Qty: 1 on 02/28/2012 by Gabe Dudley MD at [facility] Right: Cranial 421.511 / / Imp Bur Hole Cover 17mm Low Profile Ti 421.527 Implanted:Qty: 2 on 02/28/2012 by Gabe Dudley MD at [facility] Right: Cranial 421.527 / / Procedures Procedure Name Priority Date/Time Associated Diagnosis Comments HIV ANTIGEN ANTIBODY COMBO Routine 10/09/2023 10:37 AM CDT HEPATITIS C RNA, QUANTITATIVE BY PCR Routine 10/09/2023 10:37 AM CDT GLUCOSE BY METER Routine 10/09/2023 5:57 AM CDT ABSTRACT PAP (HIM EXTERNAL RESULT) Routine 11/13/2014 from Last 3 Months or Most Recently Relevant to Health Maintenance Results * HIV Antigen Antibody Combo [place] (10/09/2023 10:37 AM CDT) HIV Antigen Antibody Combo Nonreactive Nonreactive 10/09/2023 7:46 PM CDT [facility] Comment:Negative HIV-1 p24 a ntigen and HIV-1/2 antibody screening test results usually indicate the absence of HIV-1 and HIV-2 infection. However, such negative results do not rule-out acute HIV infection. If acute HIV-1 or HIV-2 infection is suspected, detection of HIV-1 or HIV-2 RNA is recommended. Blood BLOOD SPECIMEN / Unknown Venipuncture / Unknown 10/09/2023 10:37 AM CDT 10/09/2023 10:50 AM CDT us Misty Lee MD LAB - BLOOD ORDERABLES Final Result [facility] [place] [facility] [address], [address] [place] [address] * Hepatitis C RNA, Quantitative by PCR (10/09/2023 10:37 AM CDT) Hepatitis C RNA IU/mL Not Detected Not Detected IU/mL 10/11/2023 1:04 PM CDT [facility] Blood BLOOD SPECIMEN / Unknown Venipuncture / Unknown 10/09/2023 10:37 AM CDT 10/09/2023 10:50 AM CDT Narrative [facility] - 10/11/2023 1:04 PM CDT The finesse Hepatitis C assay is an FDA-approved in vitro nucleic acid amplification test for the quantification of Hepatitis C virus (HCV) RNA in human EDTA plasma or serum, using the Jia finesse 6800 instrument for automated viral nucleic acid extraction, purification, amplification, and detection of the viral nucleic acid target. This assay utilizes dual probes to detect and quantify, but not discriminate genotypes 1-6. The test is intended for use as an aid in the diagnosis of HCV infection and an aid in the management of HCV-infected patients undergoing anti-viral therapy. Titer results are reported in IU/mL. us Misty Lee MD LAB - BLOOD ORDERABLES Final Result Performing Organization Address [facility] Co de Phone Number [facility]. [facility] Di[facility]. Lab [address], [address] [place] [address] * (ABNORMAL) Glucose by meter (10/09/2023 5:57 AM CDT) GLUCOSE BY METER POCT 130(H) 70 - 99 mg/dL 10/09/2023 6:04 AM CDT [facility] P[facility] Blood, Capillary BLOOD SPECIMEN / Unknown 10/09/2023 5:57 AM CDT 10/09/2023 6:04 AM CDT us Gunjan Wilson MD LAB - BEAKER POCT Final Re sult [facility] POC [facility] Lab [address], [address] [place] [address], [facility] * ABSTRACT PAP-NO CHARGE (11/13/2014) 11/13/2014 Narrative EXTERNAL LAB - 11/13/2014 Marylu Albert CMA ([phone]) Sent: SatAugust 12, 2015 3:19 PM To: P Abstract Quality Initiatives Message ----- Message from Marylu Albert CMA sent at 08/12/2015 3:19 PM CDT ----- Pt reports pap smear done with OB at 6wk post visit in November 2014 us Patient Reported LAB - HIM EXTERNAL RESULT Final Result EXTERNAL LAB External Lab from Last 3 Months or Most Recently Relevant to Health Maintenance Insurance [facility] [place] [address] [place] Advance Directives For more information, please contact: [phone] * Full Code (Latest Code Status on File) Date Activated Date Inactivated Comments 10/10/2023 5:05 AM 10/12/2023 3:09 PM All basic an d advanced life-sustaining interventions are performed as appropriate Question Answer Comments Code status determined by: Other (please humphrey t) * Full Code Date Activated Date Inactivated Comments 10/09/2023 4:23 PM 10/10/2023 5:05 AM All basic an d advanced life-sustaining interventions are performed as appropriate Question Answer Comments Code status determined by: Unable to det ermine; FULL CODE until documents or legal decision maker available * Full Code Date Activated Date Inactivated Comments 10/01/2023 11:35 PM 10/09/2023 4:23 PM All basic a nd advanced life-sustaining interventions are performed as appropriate Question Answer Comments Code status determined by: Unable to dis cuss and no AD/POLST on file; continue PREVIOUSLY ORDERED code status * Full Code Date Activated Date Inactivated Comments 09/29/2023 6:09 AM 10/01/2023 11:35 PM All basic a nd advanced life-sustaining interventions are performed as appropriate Question Answer Comments Code status determined by: Unable to det ermine; FULL CODE until documents or legal decision maker available * Full Code Date Activated Date Inactivated Comments 09/28/2023 12:24 PM 09/29/2023 6:09 AM All basic a nd advanced life-sustaining interventions are performed as appropriate Question Answer Comments Code status determined by: Unable to det ermine; FULL CODE until documents or legal decision maker available Care Teams Operations Recruiter Relationship Specialty Start Date End Date Pooja Harris MD PCP - General farm contractor 03/28/17 Kylie Shrestha 01/16/12 Kylie Shrestha Internal Medicine 07/27/13 [place] [address] [place] [address] Assigned Neuroscience Provider 01/06/24
--- OUTSIDE RECORDS SUMMARY | 2024-12-14 01:12 | XMS_ITS | Encounter Summary ---
Author Organization [facility] Address [address] [place] [address] Care Team Providers Care 3D Modeler Name Role Phone HenriettaKylie mon Tianna Unavailable Kylie Shrestha Unavailable Pooja Harris MD Primary Care Provider Bishop Powell MD Unavailable [phone] Encounter Details Date Type Department Care Team (Late st Contact Info) Description 11/28/2023 [facility] Medical Advice [facility] [address] [place] [phone] Kemi Guido, RN Social History Tobacco Use Types Packs/Day Years Used Date Smoking Tobacco: Never Smokeless Tobacco: Never Alcohol Use Standard Drinks/Week Comments No 0 (1 standard drink = 0.6 oz pur e alcohol) 2 per month PHQ-2 Answer Date Recorded PHQ-2 Score 0 11/14/2023 [place] Depression Scale Answer Date Recorded Last EPDS Total Score Not on file 11/13/2023 The thought of harming myself has occurred to me . 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
--- OUTSIDE RECORDS SUMMARY | 2024-12-14 01:12 | XMS_ITS | Clinical Summary ---
[facility] Address [address], [place] [address] Care Team Providers Care Digital Printer Operator Name Role Phone Needs Pcp, Assignment Primary Care Provider [phone] Source Comments You are receiving this document as you are listed as the primary care provider,follow-up provider, or the patient has been referred to you for consultation.This is in compliance with the Medicare and[facility] EHR Incentive Program,which states Providers who transition their patient to another setting of careor provider of care or refers their patient to another provider of care shouldprovide summary care record for each transition of care or referral. [employer] Allergies Active Allergy Reactions Criticality Noted Date Comments Other 04/05/1998 PN: LW Other1: -nka Review Contrast Media 04/05/1998 PN: LW CM1: CONTRAST- nka Reaction : Review Food Intolerance 11/21/2004 PN: LW FI1: nka Medications vitamin-ferrous fumarate-folic acid (AKA PLUS) 27-1 MG tablet Take 1 Tablet by mouth daily. Active cholecalciferol (VITAMIND3) 10 MCG (400 UNIT) tablet Take by mouth daily. Active ALBUterol sulfate HFA 108 (90 Base) MCG/ACT inhaler 2 Puffs. 10/29/2023 Act lias Active Problems Estimated Date of Delivery Comme nts Yes 06/14/2015 No known active problems Resolved Problems Problem Noted Date Diagnosed Date Resolved Date Routine general medical exam ination at a health care facility 04/12/2004 10/30/2004 Overview (12/05/2016): LW Onset: [id number] ; Health Maintenance Immunizations Immunization Administration Dates Next Due DT Ped 12/09/1985 DTP 10/24/1982, 2,05/12/1981,1980 HepB Adult (Engerix-B, 20+ y rs, 3 dose series) 05/22/1993,12/27/1992,11/07/1992 Hib (ActHIB) 12/11/1984 Influenza IIV4 (Quadrivalent ) 0.5mL (31946) 01/29/2014 MMR 11/07/1992,02/23/1982 MPSV4 (Menomune) 03/10/1999 OPV, Trivalent (Orimune or tOPV) 986,10/24/1982,05/13/1981,1980 Td 11/11/1996 Tdap 04/15/2011 Family History Medical History Relation Name Comments Hypertension Father Obesity Father Cancer, Other Brother 1 Eczema Brother 2 Obesity Brother 3 Cancer, Colon Maternal Grandfather Cancer, Other Maternal Grandfather Bipolar Disorder Maternal Grandmother Cancer, Other Maternal Grandmother Amblyopia/Strabismus Paternal Grandfather Dementia Paternal Grandmother Cataract Negative Family History Diabetes Negative Family History Glaucoma Negative Family History Macular Degeneration Negative Family History Retinal Detachment Negative Family History Relation Name Status Comments Father Brother 1 Brother 2 Brother 3 Maternal Grandfather Maternal Grandmother Paternal Grandfather Paternal Grandmother Social History Tobacco Use Types Packs/Day Years Used Date Smoking Tobacco: Never Smokeless Tobacco: Never Alcohol Use Standard Drinks/Week Comments No 0 (1 standard drink = 0.6 oz pur e alcohol) Estimated Date of Delivery Comme nts Yes 06/14/2015 Sex and Gender Information Value Date Recorded Sex Assigned at Not on file Legal Sex Female 4:50 AM CDT Gender Identity Not on file Sexual Orientation Not on file Last Filed Vital Signs Vital Sign Reading Time Taken Comments Blood Pressure 112/83 11/05/2023 9:54 AM CDT Pulse 88 11/05/2023 9:54 AM CDT Temperature 36.3 C (97.3 F) 06/06/2015 5:18 PM OUTLET MANAGER Respiratory Rate 17 11/05/2023 9:54 AM CDT Oxygen Saturation 96% 11/05/2023 9:54 AM CDT Inhaled Oxygen Concentration - - Weight 159.7 kg (352 lb) 11/05/2023 9:54 AM CDT Height 185.4 cm (6' 1) 10/03/2021 2:23 PM CDT Body Mass Index 46.44 10/03/2021 2:23 PM CDT Plan of Treatment Health Maintenance Due Date Last Done Comments Hep C Screening (Preventive Services) 1980 Mammogram 1980 HIV Screening (Preventive Services) 1996 Adult Preventive Visit 1998 Cervical Cancer Screening Due 10/18/2004 10/17/2004, 04/12/2004, 04/25/2000 HPV Vaccine (1 - 3-dose SCDM series) 12/14/2007 DTaP/Tdap/Td Vaccine (8 - Tdap) 10/10/2021 10/11/2011, 04/15/2011, 11/11/1996, Additional history exists COVID-19 Vaccine ( season) 2023 Influenza Vaccine (#1) 2024 01/29/2014 Zoster/Shingles Vaccine (1 of 2) 2030 Hib Vaccine Completed 12/11/1984 IPV (Polio) Vaccine Completed 12/09/1985, 10/24/1982, 05/13/1981, Additional history exists HepB Vaccine Completed 05/22/1993, 12/14, 11/07/1992 MCV4 Vaccine Aged Out 03/10/1999 No longer eligi ble based on patient's age to complete this topic HepA Vaccine Aged Out No longer eligi ble based on patient's age to complete this topic Meningococcal B Vaccine Aged Out No l onger eligible based on patient's age to complete this topic Pneumococcal Vaccine Aged Out No long er eligible based on patient's age to complete this topic Procedures Procedure Name Priority Date/Time Associated Diagnosis Comments ANATOMICAL PATH LIQUID BASED Routine 10/17/2004 4:06 PM CDT from Last 3 Months or Most Recently Relevant to Health Maintenance Results * Pap Smear (10/17/2004 4:06 PM CDT) PAP Smear Liquid Based SEE TEXT No normal range HP CONVERSION Comment: Patient: MARIANA TILLMAN CERVICAL CYTOLOGY REPORT Pathology # [id number] Date Obtained: Date Received: CYTOLOGIC IMPRESSION: Negative for intraepithelial lesion or malignancy. ADDITIONAL DATA LMP: 09/24/04 CLINICAL HIST NORM PAP 03/18 LIQUID BASED PAP CERVICAL SPECIMEN ADEQUACY: Satisfactory. ENDOCERVICAL CELLS: Present. Verified 10/26/04 by: TSC (electronic signature) 10/17/2004 4:06 PM CDT us Ofelia Lyn PA-C LAB_1 Final Result HP CONVERSION from Last 3 Months or Most Recently Relevant to Health Maintenance Insurance [facility] Care Teams Digital Printer Operator Relationship Specialty Start Date End Date Needs Pcp, [place] [address] PCP - General 01/12/15
--- NOTE | 2024-12-14 01:58 | CRLHL7_ITS ---
For Patients: As a result of the Century Cures Act, medical imaging exams and procedure reports are released immediately into your electronic medical record. You may view this report before your referring provider. If you have questions, please contact your health care provider. INDICATION: Right upper quadrant abdominal pain. TECHNIQUE: Ultrasound abdomen limited. Sonographic images of the right upper quadrant were obtained using miller-scale and color Doppler images. COMPARISON: None. FINDINGS: Liver: Increased in echogenicity, likely reflecting fatty infiltration. No suspicious masses. No intrahepatic biliary ductal dilatation. Gallbladder: Shadowing stones. Gallbladder wall thickening measuring 6 mm. No pericholecystic fluid. Negative sonographic Martines`s sign. Common bile duct: 7 mm. Pancreas: Visualized portions are unremarkable. Right kidney: Normal in size. Normal echotexture and cortex. No suspicious masses or hydronephrosis. Vasculature: Proximal abdominal aorta and IVC are unremarkable. Patent main portal vein with hepatopetal flow. IMPRESSION: 1. Cholelithiasis with gallbladder wall thickening, suggestive of cholecystitis. 2. Mild dilatation of the common bile duct measuring 7 mm. 3. Hepatic steatosis. Dictated by Benedict Foster MD @ 12/14/2024 3:29:54 AM (Electronically Signed)
--- NOTE | 2024-12-14 02:07 | ED_ITS ---
HPI - General Adult General Chief complaint: Abdominal Pain Stated complaint: abdominal pain Time Seen by Provider: 12/14/24 01:14 Source: patient Mode of arrival: ambulatory Limitations: no limitations History of Present Illness HPI narrative: 44-year-old female presents to the emergency department in the wee hours for evaluation of right upper quadrant abdominal pain for the past 3-4 hours. Started within an hour of dinner. No fever, no trauma or injury. Mildly nauseated but no vomiting. Thought maybe the pain was related to gas, tried to have a bowel movement and was successful but pain did not improve. Does radiate to the back somewhat. No prior history of pain this bad before, did not try taking any medication for her symptoms. Had a similar episode that was self- limited back in May, no further workup for it. No shortness of breath, cardiac symptoms, rash or gynecological changes. She has had 5 prior C-sections including a cyst area in hysterectomy for her last delivery last year. No prior gallbladder workup. No history of bowel obstructions, no prior cholecystectomy or appendectomy. No bloody stools, hematemesis or unusual vaginal discharge. No urinary changes. Past medical history mostly notable for placenta increased a with prior C- section with hysterectomy at the time of her last delivery. She also reports a prior brain surgery. No long-term medications, no allergies. Nonsmoker. ROS is notable for the GI symptoms as above, otherwise denies times 12 systems. Related Data Home Medications ?Medication ?Instructions ?Recorded ?Confirmed cholecalciferol (vitamin D3) 50 50 mcg PO QDAY 4 12/14/24 mcg (2,000 unit) capsule docosahexaenoic acid 200 mg 200 mg PO DAILY 05/31/23 0 12/14/24 capsule ( DHA) vitamin B complex 1 cap PO QDAY 05/31/2312/14 calcium carbonate (Tums) 200 mg PO BID 09/16/2312/14 Allergies Allergy/AdvReac Type Severity Reaction Status Date / Time house dust Allergy Unknown Verified 09/16/23 12:53 adhesive AdvReac Unknown Verified 09/16/23 12:53 [facility] Medical History Elevated liver function tests ?R79.89 - Other specified abnormal findings of blood chemistry (ICD-10) History of varicella ?Z86.19 - Personal history of other infectious and parasitic diseases (ICD- 10) History of abnormal cervical Papanicolaou smear (2013) ?Z87.42 - Personal history of other diseases of the female genital tract (ICD-10) Cholestasis during ?O26.619 - Liver and biliary tract disorders in , unspecified trimester (ICD-10) ?K83.1 - Obstruction of bile duct (ICD-10) Surgical History Status post emergency hysterectomy (10/08/23) ?Z90.710 - Acquired absence of both cervix and uterus (ICD-10) History of delivery ?Z98.891 - History of uterine scar from previous surgery (ICD-10) Status post delivery ?Z98.891 - History of uterine scar from previous surgery (ICD-10) History of varicose vein ligation and stripping ?Z98.890 - Other specified postprocedural states (ICD-10) History of third molar tooth extraction ?K08.409 - Partial loss of teeth, unspecified cause, unspecified class (ICD- 10) History of colposcopy with cervical biopsy ?Z98.890 - Other specified postprocedural states (ICD-10) History of brain surgery ?Z98.890 - Other specified postprocedural states (ICD-10) Family History Brother Brain tumor Leukemia Family/Other Breast cancer Father Diabetes High cholesterol High blood pressure Social History Narrative: -Samuel nonsmoker What is your current living situation?: I presently have a place to live Problems where you live: no known problems In the past 12 months, utilities in danger of being shut off: no In past 12 months, lack of transportation kept you from medical appts, meetings, work, or getting things needed for daily living: no In the past 12 mos, have been you worried that your food would run out before you had money to buy more?: never true In the past 12 mos, the food you bought just didn't last and you didn't have money to buy more?: never true Smoking Status: Never smoker Do you use any of these nicotine containing products: None Second hand tobacco smoke exposure: No How often do you have a drink containing alcohol: monthly or less How many standard drinks containing alcohol do you have on a typical day: 1 or 2 How often do you have six or more drinks on one occasion: Never AUDIT-C Alcohol total score: 1 Non-prescribed substance use: denies use How often does anyone, including family, friends and others, physically hurt you : never How often does anyone, including family, friends and others, insult or talk down to you: never How often does anyone, including family, friends and others, threaten you with harm: never How often does anyone, including family, friends and others, scream or curse at you: never service: No Exam Const: Vital Signs, click to edit/add: Vital Signs - 24 hr 12/14/24 01:15 Temperature 96.6 F L Pulse Rate [Pulse Oximeter] 85 Respiratory Rate 18 Blood Pressure [Ri ght Upper Arm] 151/100 H Pulse Oximetry 100 Oxygen Delivery Me thod Room Air Documenting provider has reviewed patient's vital signs: yes Common normals: no apparent distress and alert General appearance: cooperative and well kempt HENMT: Common normals: normocephalic, moist oral mucous membranes and oropharynx normal Head and scalp: normocephalic Mouth: oral and palatal mucosa normal Eye: Common normals: conjunctivae normal General eye: normal appearance of both eyes Conjunctiva: conjunctiva(e) normal Neck & C-Spine: Common normals: full ROM and no lymphadenopathy General: normal visual inspection Resp: Common normals: normal respiratory effort, no use of accessory muscles and clear to auscultation bilaterally Effort & inspection: able to speak in complete sentences Auscultation: clear to auscultation bilaterally Cardio: Common normals: regular rate, regular rhythm, S1 normal heart sound, S2 normal heart sound and no murmurs Rate: regular rate Rhythm: regular rhythm Heart sounds: S1 normal and S2 normal GI: Common normals: Normal to inspection, nondistended, normoactive bowel sounds present, soft to palpation, no hepatosplenomegaly and no masses Palpation: soft and no hepatosplenomegaly Other: Tender to palpation right upper quadrant, causes the pain to radiate into the back. No rebound tenderness or guarding. Back & Pelvis: Common normals: thoracic and lumbar spine normal to inspection Extremity: Common normals: normal to inspection and normal capillary refill General: normal exam except as noted Neuro: Sensorium/orientation: alert Speech: speech normal Psych: Common normals: speech normal Appearance: well kempt Attitude: engaged Activity/motor behavior: appropriate eye contact Speech: normal speech Mood and affect: euthymic mood Insight: insight good Judgement: judgment good Skin: Common normals: no rashes or lesions noted General skin exam: no rashes or lesions noted Course Course ED Course: 44-year-old female with postprandial right upper quadrant pain, persistent. Exam is highly suspicious for gallstones though I cannot exclude cholecystitis, biliary dyskinesia come pancreatitis, pulmonary embolism, GERD, colitis, bowel obstruction, ureterolithiasis, amongst others. Will place peripheral IV, give 0.5 mg of Dilaudid and 4 mg of Zofran.: Ultrasound from home. Typical intra- abdominal labs but including a D-dimer to look for pulmonary embolism with her history of prior superficial thrombophlebitis. Counseled patient that it will take several hours to get these results. She verbalizes understanding and agreement. Reevaluation(s) Time of Reevaluation #1: 04:29 Reevaluation #1: Patient updated on all findings. Ultrasound is consistent with cholecystitis, thickening of the gallbladder wall noted and also gallstones but no abnormalities in the common bile duct. Her labs show no evidence of biliary obstruction. AST and ALT are mildly elevated but more consistent with fatty liver. Lactate is not elevated, no leukocytosis, hemoglobin is excellent. Lipase is normal it is not suggestive of pancreatitis. I have spoken with the surgeon, she is recommending cholecystectomy, I agree. I have now spoken with the hospitalist and she has accepted admission as well. No antibiotics per the surgeon. Will start maintenance fluid and p.r.n. pain meds. Patient will remain NPO, all questions answered. Vital Signs Vital signs: Initial Vital Signs Temperature 96.6 F L 12/14/24 01:15 Temperature Source Temporal Artery Scan 12/14/24 01:15 Pulse Rate 85 12/14/24 01:15 Respiratory Rate 18 12/14/24 01:15 Blood Pressure 151/100 H 12/14/24 01:15 Blood Pressure Mean 117 H 12/14/24 01:15 Blood Pressure Position Semi-Fowlers 12/14/24 01:15 Pulse Oximetry 100 12/14/24 01:15 Oxygen Delivery Method Room Air 12/14/24 01:15 Vital Signs Temperature 96.6 F L 12/14/24 01:15 Pulse Rate 85 12/14/24 01:15 Respiratory Rate 18 12/14/24 01:15 Blood Pressure 151/100 H 12/14/24 01:15 Pulse Oximetry 100 12/14/24 01:15 Oxygen Delivery Method Room Air 12/14/24 01:15 Temperature 96.6 F L 12/14/24 01:15 Pulse Rate 85 12/14/24 01:15 Respiratory Rate 18 12/14/24 01:15 Blood Pressure 151/100 H 12/14/24 01:15 Pulse Oximetry 100 12/14/24 01:15 Oxygen Delivery Method Room Air 12/14/24 01:15 Medications Administered Medications: Discontinued Medications Generic Name Dose Route Start Last Admin Trade Name Freq PRN Reason Stop Dose Admin Hydromorphone HCl 0.5 mg 12/14/24 01:58 12/14/24 02:21 Hydromorphone 0.5 Mg/0.5 Ml Inj IVP 12/14/24 01:59 0.5 mg ONCE ONE Administration Ondansetron HCl 4 mg 12/14/24 01:58 12/14/24 02:20 Ondansetron 2 Mg/Ml Inj IVP 12/14/24 01:59 4 mg ONCE ONE Administration Medical Decision Making Lab Data Lab results reviewed: Yes I reviewed the patient's lab results Lab results narrative: No significant leukocytosis. LFTs mildly elevated but only in a fashion consistent more with fatty liver, there are no signs of an obstructive pattern like an elevated bilirubin. Lipase is normal, D-dimer is normal in CRP is only minimally elevated. Overall reassuring labs. Labs: Lab Results 12/14/24 12/14/24 12/14/24 Range/Units 02:17 02:30 03:42 WBC 9.07 (4.50-11.00) K/uL RBC 4.72 (4.00-5.20) m/uL Hgb 14.2 (12.0-16.0) gm/dL Hct 43.2 (33.0-51.0) % MCV 92 (80-100) fL MCH 30 (26-34) pg MCHC 33 (32-36) gm/dL RDW Coeff of Yuniel 13.0 (11.5-15.5) % Plt Count 241 (140-440) K/uL Neut % (Auto) 73.9 H (42.0-72.0) % Lymph % (Auto) 17.4 L (20-44) % Gilliam % (Auto) 6.6 (0.0-11.0) % Eos % (Auto) 0.7 (0.0-7.0) % Baso % (Auto) 0.2 (0.0-3.0) % Neut # (Auto) 6.70 (1.7-7.0) K/uL Lymph # (Auto) 1.60 (0.90-2.90) K/uL Gilliam # (Auto) 0.60 (0.00-0.90) K/UL Eos # (Auto) 0.06 (0.00-0.50) K/uL Baso # (Auto) 0.02 (0.00-0.30) K/uL Abs Immat Gran (auto) 0.11 (0.00-0.30) K/uL Imm/Tot Granulo (auto) 1.2 % D-Dimer Quant (PE/DVT) 0.10 (0.00-0.50) ug/ml Sodium 136 (135-149) mmol/L Potassium 4.6 (3.6-5.1) mmol/L Chloride 102 (96-114) mmol/L Carbon Dioxide 28 (20-32) mmol/L Anion Gap 6 L (7-15) mEq/L BUN 20 (5-24) mg/dL Creatinine 0.9 (0.5-1.5) mg/dL Estimated Creat Clear 94.95 Estimated GFR 81 ml/min Glucose 124 H (60-115) mg/dL Lactate 1.0 (0.5-1.9) mmol/L Calcium 9.2 (8.4-10.6) mg/dL Total Bilirubin 0.7 (0.1-1.5) mg/dL AST 52 H (12-35) U/L ALT 42 H (4-35) U/L Alkaline Phosphatase 83 (40-150) U/L C-Reactive Protein 1.4 H (0.5-1.0) mg/dL Total Protein 7.5 (6.0-8.3) g/dL Albumin 4.4 (3.3-5.0) g/dL Lipase 93 (23-300) U/L HCG, Quant < 2.39 mIU/mL Urine Color Yellow (Yellow) Urine Appearance Clear (Clear) Urine pH 7.0 (5.0-8.5) Ur Specific [place] 1.015 (1.000-1.030) Urine Protein Negative (Negative) Urine Glucose (UA) Negative (Negative) Urine Ketones Negative (Negative) Urine Blood Negative (Negative) Urine Nitrite Negative (Negative) Urine Bilirubin Negative (Negative) Urine Urobilinogen 0.2 (0.2-1.0) Ur Leukocyte Esterase Trace A (Negative) Imaging Data Right upper quadrant ultrasound: Attestation: I have reviewed the pertinent imaging results. My impression: Thickened gallbladder wall suspicious for cholecystitis. Stones are present as well Radiologist's impression: FINDINGS: Liver: Increased in echogenicity, likely reflecting fatty infiltration. No suspicious masses. No intrahepatic biliary ductal dilatation. Gallbladder: Shadowing stones. Gallbladder wall thickening measuring 6 mm. No pericholecystic fluid. Negative sonographic Martines`s sign. Common bile duct: 7 mm. Pancreas: Visualized portions are unremarkable. Right kidney: Normal in size. Normal echotexture and cortex. No suspicious masses or hydronephrosis. Vasculature: Proximal abdominal aorta and IVC are unremarkable. Patent main portal vein with hepatopetal flow. IMPRESSION: 1. Cholelithiasis with gallbladder wall thickening, suggestive of cholecystitis. 2. Mild dilatation of the common bile duct measuring 7 mm. 3. Hepatic steatosis. Discharge Plan Discharge Clinical Impression: Acute calculous cholecystitis Patient Disposition: XFER to OR Condition: Stable Instructions: Cholecystitis (ED) Follow Up/Referrals: Provider,Not a Local [Primary Care Provider, Family Practice]
[2024-12-14 02:20] LABS: Hematocrit 43.2 % (33.0-51.0); Hemoglobin* 14.2 gm/dL (12.0-16.0); Immature Granulocytes Abs Auto 0.11 K/uL (0.00-0.30); Immature Granulocytes Pct Auto 1.2 %; Mean Corpuscular HGB Conc 33 gm/dL (32-36); Mean Corpuscular Hemoglobin 30 pg (26-34); Mean Corpuscular Volume 92 fL (80-100); RDW Coefficient of Variation % 13.0 % (11.5-15.5); Red Blood Count 4.72 m/uL (4.00-5.20); White Blood Count* 9.07 K/uL (4.50-11.00)
[2024-12-14] MEDS: ONDANSETRON 2 MG/ML inj 4 MG IVP (02:20)
[2024-12-14 02:32] LABS: Lactate* 1.0 mmol/L (0.5-1.9)
[2024-12-14 02:32] LABS: Lymphocytes Absolute Auto 1.60 K/uL (0.90-2.90); Slide Review Reflex No
[2024-12-14 02:35] LABS: Albumin* 4.4 g/dL (3.3-5.0); Chloride* 102 mmol/L (96-114)
[2024-12-14 02:36] LABS: Potassium* 4.6 mmol/L (3.6-5.1); Sodium* 136 mmol/L (135-149)
[2024-12-14 02:38] LABS: Blood Urea Nitrogen* 20 mg/dL (5-24); Creatinine* 0.9 mg/dL (0.5-1.5); Est. Creatinine Clearance* 94.95; Estimated Glomerular Filt Rate 81 ml/min
[2024-12-14 02:39] LABS: Alanine Aminotransferase* 42 U/L (4-35); Alkaline Phosphatase* 83 U/L (40-150); Anion Gap 6 mEq/L (7-15); Aspartate Amino Transferase* 52 U/L (12-35); Bilirubin Total* 0.7 mg/dL (0.1-1.5); Calcium* 9.2 mg/dL (8.4-10.6); Carbon Dioxide* 28 mmol/L (20-32); Glucose* 124 mg/dL (60-115); Total Protein* 7.5 g/dL (6.0-8.3)
[2024-12-14 02:57] LABS: D Dimer Quantitative* 0.10 ug/ml (0.00-0.50); HCG Quantitative* < 2.39 mIU/mL
[2024-12-14 03:44] LABS: Appearance Urine Clear (Clear)
--- NOTE | 2024-12-14 04:30 | W.PM.TELEH&P ---
Telehealth- H&P: HPI History of Present Illness Date Seen: 12/14/24 Chief complaint: abdominal pain Narrative: Mariana Tello is seen as an Interactive Telehealth visit. Mariana Tello is a 44 year old female who Has a past medical history significant for Brain tumor that was benign removed 13 years ago,morbid obesity, multiparity who now presents to the emergency department with abdominal pain.Patient notes right upper quadrant abdominal pain began after dinner with associated nausea but no emesis. She denies any fever or chills. Patient had a similar prior episode in May with noted abdominal pain that lasted approximately 4 hours. She denies any chest pain, shortness of breath, palpitations. She denies any diarrhea or constipation. She denies any pain or burning on urination. She has had no prior history of DVTs or PEs. She has no history of prior anesthesia complications, seizures, or recent illnesses.Patient did have an episode of superficial phlebitis for which she was not placed on anticoagulation in the past. In the emergency department her WBC count was 9.07, hemoglobin 14.2, hematocrit 43.2, platelet count 241. Sodium 136, potassium 4.6, chloride of 102, BUN of 20, creatinine 0.9. AST 52, ALT 42. Alk phos 83. Total bili 0.7. Abdominal ultrasound with cholelithiasis with gallbladder wall thickening suggestive of cholecystitis mild dilatation of the common bile duct measuring 7 mm noted. Patient was subsequently admitted for further management. General surgery was contacted by the ER. Review of Systems Status of ROS: Reports: 10 or more systems reviewed and unremarkable except as noted in History and below [facility] Medical History Elevated liver function tests ?R79.89 - Other specified abnormal findings of blood chemistry (ICD-10) History of varicella ?Z86.19 - Personal history of other infectious and parasitic diseases (ICD-10) History of abnormal cervical Papanicolaou smear (2013) ?Z87.42 - Personal history of other diseases of the female genital tract (ICD-10) Cholestasis during ?O26.619 - Liver and biliary tract disorders in , unspecified trimester (ICD-10) ?K83.1 - Obstruction of bile duct (ICD-10) Surgical History Status post emergency hysterectomy (10/08/23) ?Z90.710 - Acquired absence of both cervix and uterus (ICD-10) History of delivery ?Z98.891 - History of uterine scar from previous surgery (ICD-10) Status post delivery ?Z98.891 - History of uterine scar from previous surgery (ICD-10) History of varicose vein ligation and stripping ?Z98.890 - Other specified postprocedural states (ICD-10) History of third molar tooth extraction ?K08.409 - Partial loss of teeth, unspecified cause, unspecified class (ICD-10) History of colposcopy with cervical biopsy ?Z98.890 - Other specified postprocedural states (ICD-10) History of brain surgery ?Z98.890 - Other specified postprocedural states (ICD-10) Family History Brother Brain tumor Leukemia Family/Other Breast cancer Father Diabetes High cholesterol High blood pressure Social History Narrative: -Samuel nonsmoker What is your current living situation?: I presently have a place to live Problems where you live: no known problems In the past 12 months, utilities in danger of being shut off: no In past 12 months, lack of transportation kept you from medical appts, meetings, work, or getting things needed for daily living: no In the past 12 mos, have been you worried that your food would run out before you had money to buy more?: never true In the past 12 mos, the food you bought just didn't last and you didn't have money to buy more?: never true Smoking Status: Never smoker Do you use any of these nicotine containing products: None Second hand tobacco smoke exposure: No How often do you have a drink containing alcohol: monthly or less How many standard drinks containing alcohol do you have on a typical day: 1 or 2 How often do you have six or more drinks on one occasion: Never AUDIT-C Alcohol total score: 1 Non-prescribed substance use: denies use How often does anyone, including family, friends and others, physically hurt you: never How often does anyone, including family, friends and others, insult or talk down to you: never How often does anyone, including family, friends and others, threaten you with harm: never How often does anyone, including family, friends and others, scream or curse at you: never service: No Meds Home Medications and Allergies Home Medications ?Medication ?Instructions ?Recorded ?Confirmed ?Type cholecalciferol (vitamin D3) 50 50 mcg PO QDAY 05/31/23 12/14/24 History mcg (2,000 unit) capsule docosahexaenoic acid 200 mg 200 mg PO DAILY 05/31/23 12/14/24 History capsule ( DHA) vitamin B complex 1 cap PO QDAY 05/31/23 12/14/24 History calcium carbonate (Tums) 200 mg PO BID 09/16/23 12/14/24 History Allergies Allergy/AdvReac Type Severity Reaction Status Date / Time house dust Allergy Unknown Verified 09/16/23 12:53 adhesive AdvReac Unknown Verified 09/16/23 12:53 Exam Narrative Exam Narrative: Physical Exam GENERAL: ?vital signs reviewed, well developed and nourished, in no distress HEENT: pupils are equal round and reactive to light, extraocular movements are grossly within normal limits and oral mucosa is moist. NECK: Supple without lymphadenopathy or thyromegaly according to nursing staff examination observation HEART: Regular rate and rhythm without any rubs, murmurs, or gallops. LUNGS: Clear to auscultation bilaterally with good air movement throughout ABDOMEN: Observation from nurse assisted exam, abdomen appears soft,Nontender, and nondistended with Positive bowel sounds noted. EXTREMITIES: Strength and sensation is observed to be grossly within normal limits in the upper and lower extremities.? No focal strength deficit is observed. SKIN:? Observed warm and dry with color normal Const Vital Signs, click to edit/add: Vital Signs - 24 hr 12/14/24 01:15 Temperature 96.6 F L Pulse Rate [Pulse Oximeter] 85 Respiratory Rate 18 Blood Pressure [Right Upper Arm] 151/100 H Pulse Oximetry 100 Oxygen Delivery Method Room Air Hospitalist - H&P: Result Labs Labs: Short CBC 12/14/24 Range/Units 02:30 WBC 9.07 (4.50-11.00) K/uL Hgb 14.2 (12.0-16.0) gm/dL Hct 43.2 (33.0-51.0) % Plt Count 241 (140-440) K/uL BMP 12/14/24 02:17 Sodium 136 Potassium 4.6 Chloride 102 Carbon Dioxide 28 BUN 20 Creatinine 0.9 Glucose 124 H Calcium 9.2 Liver Function 12/14/24 Range/Units 02:17 Total Bilirubin 0.7 (0.1-1.5) mg/dL AST 52 H (12-35) U/L ALT 42 H (4-35) U/L Alkaline Phosphatase 83 (40-150) U/L Albumin 4.4 (3.3-5.0) g/dL Urine 12/14/24 Range/Units 03:42 Urine Color Yellow (Yellow) Urine Appearance Clear (Clear) Urine pH 7.0 (5.0-8.5) Ur Specific [place] 1.015 (1.000-1.030) Urine Protein Negative (Negative) Urine Glucose (UA) Negative (Negative) Imaging US - abdomen: Attestation: I have reviewed the pertinent imaging results. Radiologist's impression: 1.Cholelithiasis with gallbladder wall thickening, suggestive of cholecystitis. 2. Mild dilatation of the common bile duct measuring 7 mm. 3. Hepatic steatosis. Assessment and Plan Assessment and plan (1) Acute calculous cholecystitis: Status: Acute Plan 44-year-old female with past medical history significant for morbid obesity, multi parity now presents to the emergency department with right upper quadrant abdominal pain noted to have acute cholecystitis. IV fluids N.p.o. Antiemetics as needed Pain control General Surgery consultation There are no medical contraindications to the proposed procedure SCDs for DVT prophylaxis Telehealth: Statement Statement Telehealth Visit: Today's History and Physical is provided via interactive telehealth by Richelle Castro MD.? Patient is located at [facility].? Provider is located at [facility]? Nursing staff assisted with the patient's exam. The visit being done today meets criteria for a telehealth visit and the patient or patient?s parent/guardian is aware the visit is a telehealth visit. Camera Start Time: 05:01 Camera End Time: 05:12
[2024-12-14] MEDS: LACTATED RINGERS 1000 ML 1,000 ML 125 ML IV (04:37)
--- NOTE | 2024-12-14 05:58 | PC.NURSE ---
Pt came to floor @0450. NPO since arrival. Reporting pain subsided after Dilaudid given in ED. No N/V. Awaiting Sx this morning. Afebrile VS unremarkable.
--- NOTE | 2024-12-14 08:58 | PM.GSCN ---
History of Present Illness Consult details Date Seen: 12/14/24 Consult date: 12/14/24 Narrative: The patient is a 44 year old female who presented to the emergency department last evening with pain in her upper abdomen and right upper quadrant. She states that she ate dinner around 10:00 p.m. last night. Around 10:30 p.m. she states that she felt like there was a rock in her upper abdomen. She tried a castor oil pat in it did not help. She thought that her pain was related to gas but did not get better with having a bowel movement. The pain increased in severity and so she came in to be seen. She states that when her abdomen was palpated in the ER she did note some radiation of the pain to her back but otherwise the pain does not radiate. She has no change in her bowel habits. No urinary symptoms. She did have a combination of chills as well as feeling very hot her to coming into the ER. She has not had nausea or vomiting. Nothing seemed to help her discomfort other than Dilaudid. She did have a similar episode in May. She states that her pain was less severe and went away after she went to sleep. This time the pain did not go away. [facility] Medical History (Updated 12/14/24 @ 11:08 by Taryn Sánchez MD) Elevated liver function tests ?R79.89 - Other specified abnormal findings of blood chemistry (ICD-10) Migraine (12/31/11) ?G43.909 - Migraine, unspecified, not intractable, without status migrainosus (ICD-10) Vitamin D deficiency (10/14/11) ?E55.9 - Vitamin D deficiency, unspecified (ICD-10) Placental abruption in second trimester (09/29/23) ?O45.92 - Premature separation of placenta, unspecified, second trimester (ICD-10) Personal history of benign brain tumor (09/29/23) ?Z86.011 - Personal history of benign neoplasm of the brain (ICD-10) Leg edema (12/21/13) ?R60.0 - Localized edema (ICD-10) Class 3 severe obesity due to excess calories in adult (03/30/20) ?E66.813 - Obesity, class 3 (ICD-10) 27 weeks gestation of (06/16/24) ?Z3A.27 - 27 weeks gestation of (ICD-10) History of varicella ?Z86.19 - Personal history of other infectious and parasitic diseases (ICD-10) History of abnormal cervical Papanicolaou smear (2013) ?Z87.42 - Personal history of other diseases of the female genital tract (ICD-10) Cholestasis during ?O26.619 - Liver and biliary tract disorders in , unspecified trimester (ICD-10) ?K83.1 - Obstruction of bile duct (ICD-10) Surgical History (Updated 12/14/24 @ 11:06 by Taryn Sánchez MD) History of section complicating (09/29/23) ?O34.219 - Maternal care for unspecified type scar from previous delivery (ICD-10) Status post emergency hysterectomy (10/08/23) ?Z90.710 - Acquired absence of both cervix and uterus (ICD-10) History of delivery ?Z98.891 - History of uterine scar from previous surgery (ICD-10) Status post delivery ?Z98.891 - History of uterine scar from previous surgery (ICD-10) History of varicose vein ligation and stripping ?Z98.890 - Other specified postprocedural states (ICD-10) History of third molar tooth extraction ?K08.409 - Partial loss of teeth, unspecified cause, unspecified class (ICD-10) History of colposcopy with cervical biopsy ?Z98.890 - Other specified postprocedural states (ICD-10) History of brain surgery ?Z98.890 - Other specified postprocedural states (ICD-10) Family History (Updated 12/14/24 @ 11:06 by Taryn Sánchez MD) Brother Brain tumor Leukemia Family/Other Breast cancer Father Diabetes High cholesterol High blood pressure Social History Narrative: -Samuel nonsmoker. Minimal alcohol use. She states the home with her 5 children. What is your current living situation?: I presently have a place to live Problems where you live: no known problems Problems where you live details: NA In the past 12 months, utilities in danger of being shut off: no In past 12 months, lack of transportation kept you from medical appts, meetings, work, or getting things needed for daily living: no In the past 12 mos, have been you worried that your food would run out before you had money to buy more?: never true In the past 12 mos, the food you bought just didn't last and you didn't have money to buy more?: never true Highest level of school completed/degree received: Professional degree (MD, [employer], DVM, DDS) Smoking Status: Never smoker Do you use any of these nicotine containing products: None Second hand tobacco smoke exposure: No How often do you have a drink containing alcohol: monthly or less How many standard drinks containing alcohol do you have on a typical day: 1 or 2 How often do you have six or more drinks on one occasion: Never AUDIT-C Alcohol total score: 1 Non-prescribed substance use: denies use Caffeine: No How often does anyone, including family, friends and others, physically hurt you: never How often does anyone, including family, friends and others, insult or talk down to you: never How often does anyone, including family, friends and others, threaten you with harm: never How often does anyone, including family, friends and others, scream or curse at you: never service: No Meds Home Medications and Allergies Home Medications ?Medication ?Instructions ?Recorded ?Confirmed ?Type cholecalciferol (vitamin D3) 50 50 mcg PO QDAY 05/31/23 12/14/24 History mcg (2,000 unit) capsule docosahexaenoic acid 200 mg 200 mg PO DAILY 05/31/23 12/14/24 History capsule ( DHA) vitamin B complex 1 cap PO QDAY 05/31/23 12/14/24 History calcium carbonate (Tums) 200 mg PO BID 09/16/23 12/14/24 History Allergies Allergy/AdvReac Type Severity Reaction Status Date / Time house dust Allergy Unknown Verified 09/16/23 12:53 adhesive AdvReac Unknown Verified 09/16/23 12:53 Exam Narrative: Exam Narrative: General appearance: Alert, cooperative, and in no distress Eyes: PERRLA, eye lids clear, and sclera white HENT Head: Normocephalic Ears: External ears normal Pulmonary: Breathing nonlabored on room air Cardiovascular Heart: Regular rate Extremities: warm and well perfused Gastrointestinal Abdominal: Protuberant. She has a lower midline scar which extends up above her umbilicus from prior and hysterectomy. No upper abdominal scars. Mildly tender in the right upper quadrant. Musculoskeletal: Extremities: Upper: Both upper extremities have normal joint range of motion and intact strength. Lower: Both lower extremities have normal joint range of motion and intact strength. Skin: Normal skin color, texture, and turgor. Neurologic: No focal deficits Psychiatric: Alert, oriented, cooperative, normal affect. Const: Vital Signs, click to edit/add: Vital Signs - 24 hr 12/14/24 01:15 12/14/24 04:43 12/14/24 05:25 Temperature 96.6 F L 98.1 F 99 F Pulse Rate [Pulse Oximeter] 85 96 Pulse Rate [Right Radial] 88 Respiratory Rate 18 16 16 Blood Pressure [Le ft Arm] 141/85 H Blood Pressure [Ri ght Upper Arm] 151/100 H 131/69 Pulse Oximetry 100 95 95 Oxygen Delivery Me thod Room Air Room Air Room Air 12/14/24 05:27 12/14/24 05:36 12/14/24 05:46 Temperature 99 F 99 F Pulse Rate [Pulse Oximeter] Pulse Rate [Right Radial] 88 88 Respiratory Rate 16 16 16 Blood Pressure [Le ft Arm] 141/85 H 141/85 H Blood Pressure [Ri ght Upper Arm] Pulse Oximetry 95 95 95 Oxygen Delivery Me thod Room Air Room Air Room Air 12/14/24 07:00 Temperature 98.0 F Pulse Rate [Pulse Oximeter] Pulse Rate [Right Radial] 85 Respiratory Rate 16 Blood Pressure [Le ft Arm] 144/88 H Blood Pressure [Ri ght Upper Arm] Pulse Oximetry 98 Oxygen Delivery Me thod Room Air Results Labs Labs: White blood cell count was 9. Total bili 0.7 AST 52 ALT 42 Lipase 93 CRP 1.4 Imaging Abdominal ultrasound report/results: report reviewed and image reviewed Additional studies: IMPRESSION: 1. Cholelithiasis with gallbladder wall thickening, suggestive of cholecystitis. 2. Mild dilatation of the common bile duct measuring 7 mm. 3. Hepatic steatosis. Dictated by Benedict Foster MD @ 12/14/2024 3:29:54 AM (Electronically Signed) Progress Note:A&P Assessment and plan (1) Elevated liver function tests: Status: Acute (2) Cholecystitis: Status: Acute (3) Common bile duct dilatation: Status: Acute Plan The patient is a 44-year-old female with likely cholecystitis. I explained that the treatment for this is laparoscopic cholecystectomy. We discussed the procedure as well as risks and benefits of surgery which include bleeding, infection, bile leak, conversion to open or injury to other structures, specifically the common bile duct. We also discussed recovery. Because of the patient's elevated liver enzymes and mildly dilated common bile duct, I recommended attempt at intraoperative cholangiogram. Certainly with normal bilirubin this is less likely though her bile duct is more dilated than I would expect for her age. I am able to safely do the cholangiogram we will do it. If not then we will follow her clinically. We discussed that if choledocholithiasis is found, then she may need ERCP. She is agreeable to proceed we will plan on surgery this morning. She will hopefully be able to discharge home postoperatively.
--- NOTE | 2024-12-14 09:57 | CRLHL7_ITS ---
For Patients: As a result of the Century Cures Act, medical imaging exams and procedure reports are released immediately into your electronic medical record. You may view this report before your referring provider. If you have questions, please contact your health care provider. INDICATION : Laparoscopic cholecystectomy. TECHNIQUE : Intraoperative cholangiogram. Contrast injected via gallbladder neck and cystic duct. FINDINGS : Fluoroscopy time was 33.9 seconds. 2 images were obtained. IMPRESSION : Normal caliber intra and extrahepatic ducts. No filling defects. Contrast seen within the duodenum. Normal intraoperative cholangiogram. Dictated by Bishop Jacobson MD @ 12/15/2024 5:34:30 AM (Electronically Signed)
--- NOTE | 2024-12-14 11:04 | P.ANES_ITS ---
Anesthesia Charges Start Date/Time Anesthesia Start Date: 12/14/24 Anesthesia Start Time: 10:48 Stop Date/Time Anesthesia Stop Date: 12/14/24 Anesthesia Stop Time: 12:41 Summary Emergency: COMPUTER SYSTEMS DESIGNER Coding CPT Codes CPT Codes: ANESTH SURG UPPER ABDOMEN - 38570 ([id number]) P3 - PATIENT W/SEVERE SYS DISEASE, QZ - COMPUTER SYSTEMS DESIGNER SVC W/O UNDER GROUND MINER BY Additional Codes: Summary - Emergency: COMPUTER SYSTEMS DESIGNER ([id number])
--- NOTE | 2024-12-14 11:04 | W.ANESCHARGE ---
Anesthesia Charges Start Date/Time Anesthesia Start Date: 12/14/24 Anesthesia Start Time: 10:48 Stop Date/Time Anesthesia Stop Date: 12/14/24 Anesthesia Stop Time: 12:41 Summary Emergency: STAMP PAD FINISHER Coding CPT Codes CPT Codes: ANESTH SURG UPPER ABDOMEN - 77554 ([id number]) P3 - PATIENT W/SEVERE SYS DISEASE, QZ - STAMP PAD FINISHER SVC W/O MYSQL DATABASE ADMINISTRATOR BY Additional Codes: Summary - Emergency: STAMP PAD FINISHER ([id number])
[2024-12-14] MEDS: PIPERACILLIN/TAZOBACTAM 3.375 GM INJ IVPB (11:06)
[2024-12-14] MEDS: LACTATED RINGERS 1000 ML 1,000 ML 100 ML IV (11:30)
[2024-12-14] MEDS: BUPIVACAINE 0.25% 30 ML INJECTION (11:49)
[2024-12-14] MEDS: 0.9% SODIUM CHL 50 ML VIAL INJECTION (11:49)
--- NOTE | 2024-12-14 12:47 | PM.GSPRC ---
Operative Note Date of procedure: 12/14/24 Pre-op diagnosis: 1. Cholecystitis 2. Common bile duct dilatation Post-op diagnosis: Same Type of Procedure: 1. Laparoscopic cholecystectomy 2. Intraoperative cholangiogram Indications: The patient is a 44-year-old female who presented to the emergency department with severe persistent right upper quadrant pain. She was found have gallstones and gallbladder wall thickening. She also had while common bile duct dilatation with very minimally elevated AST and ALT. I recommended cholecystectomy as well as cholangiogram if feasible to rule out common bile duct obstruction. She agreed to proceed. Procedure Description: After discussing the risks and benefits of the procedure, the patient signed informed consent.? The operative site was marked and the patient was brought to the operating room and placed on the operating table in supine position.? Care was taken to pad the patient's pressure points.?? The patient was then intubated by anesthesia.?? The operative site was then prepped and draped in the usual sterile fashion.? A time-out was then performed. Entrance to the abdomen was gained via a 5 mm Visiport in the left upper quadrant. The abdomen was insufflated and briefly surveyed for signs of injury. There was none. A 10 mm supra umbilical port was placed through the patient's prior incision as well as 2 working ports along the right costal margin, all under direct vision. The patient was then placed in reverse Trendelenburg position with the right side up. The gallbladder fundus was grasped and retracted cephalad. A small amount of dissection was needed to free omental adhesions from the gallbladder. The infundibulum was grasped. A combination of hook cautery and blunt dissection was used to carefully dissect out the cystic duct and artery until they could clearly be seen entering the gallbladder without any intervening structures. The gallbladder was dissected off the cystic plate to achieve the critical view. Once this was achieved the cystic artery was clipped with 2 clips proximal 1 clip distal and divided with a scissor. A clip was then placed at the gallbladder neck. A ductotomy was then created. A cholangiocatheter was then advanced into the cystic duct and clamped. A saline leak test was performed which was negative. The patient was then placed flat and fluoroscopy was brought into the field. A cholangiogram was then obtained by injecting contrast through the cholangiocatheter. There was brisk filling of the common bile duct, right and left hepatic duct as well as the duodenum. There were no filling defects noted though the common bile duct did appear somewhat dilated with a prolonged tapering distally. Once this was done, the cholangiocatheter was removed. The patient was again placed in reverse Trendelenburg position with the right side up. Clips were placed across the distal cystic duct and the cystic duct was then transected. The gallbladder was then removed from the liver using cautery. It was placed in an Endo-Catch bag and removed through the supraumbilical incision. A small amount of bile which had spilled was then irrigated and suctioned from the abdomen. The gallbladder bed was examined. Hemostasis appeared excellent. The patient was placed flat and Mendez-Riya device was used to close the supraumbilical port site using 0 Vicryl. The abdomen was then desufflated and the ports were removed. The skin was then closed with absorbable subcuticular suture and glue was applied. Instrument sponge and needle counts were correct at the end of the case. The patient was then woken and transferred to the PACU in stable condition. ? The patient tolerated the procedure well. Findings: 1. Omental adhesions to the gallbladder 2. No evidence of choledocholithiasis on cholangiogram Surgeon: Taryn Sánchez MD Estimated blood loss (mL): 5 Specimen: Gallbladder Condition: stable Disposition: PACU
--- NOTE | 2024-12-14 17:41 | PC.NURSE ---
Nursing Care Hours: [id number] Pt this shift calm and cooperative, alert and oriented. No reported pain or nausea. Tolerated regular diet. Walk meneses x1, void x1. VSS. IV removed for discharge. Instructions went over with pt and spouse. Discussed pain meds and signs and symptoms to report. [employer] also encouraged home CPAP at home tonight d/t anesthesia and opioid pain meds. Pt agreeable. Pt ambulated off unit with spouse in stable condition.
== END 2024-12-14 17:20 | disposition home or self-care (01) ==
LOC: ED 04:31 → MEDSURG 09:51 → SS 12-16 11:14 → MEDSURG 12-16 11:14
PROVIDERS: Emergency Provider Family Medicine; Visit Provider Surgery
PROC: 0FT44ZZ Resection of Gallbladder, Percutaneous Endoscopic Approach (ICD-10-PCS; CPT 47563; principal; 2024-12-14 10:00)
DX: K80.00 Calculus of gallbladder with acute cholecystitis without obstruction (principal); K83.8 Other specified diseases of biliary tract; E66.01 Morbid (severe) obesity due to excess calories; Z68.43 Body mass index [BMI] 50.0-59.9, adult; K76.0 Fatty (change of) liver, not elsewhere classified; Z86.72 Personal history of thrombophlebitis; Z86.011 Personal history of benign neoplasm of the brain
CPT/HCPCS: 47563; 00790; 36415; 74300; 76705; 80053; 81001; 81003; 83605; 83690; 84702; 85025; 85379; 86140; 87086; 88304; 99140; 99284; 99285; A9270; J0330; J0665; J1100; J1171; J1630; J2405; J2543; J2704; J3475; J3490; J7120; Q9967